=== PATIENT | male | born 1990 | race Caucasian/White ===

== ENCOUNTER 2016-09-16 03:43 | Inpatient (IN) | payer OTHER ==
--- NOTE | ~2016-09-16 | FU ---
[facility] Nutrition Therapy DATE: 09/23/16 Patient: MELANIA MACDONALD Physician: DELFINO Address: [address] [place] [address] ROAD Room/Bed: [address], Zip: [place] [address] Admit Date: 09/16/16 Date of : 91 Height: 5 9 Weight: 138 63 NUTRITION MONITORING/FOLLOW-UP: Reason: PT SEEN FOR FOLLOW-UP/ENTERAL NUTRITION SUPPORT DX: UNRESPONSIVE, RESPIRATORY ARREST Anthropometrics: 5'9", WT: 138# (63 KG), BMI: 20.4 -WEIGHTS HAVE BEEN STABLE SINCE ADMIT Labs: CREAT: 0.5, ALB: 2.6, PHOS: 2.3, NA+132 Meds: VERSED, FENTANYL, SOLU-MEDROL, NACL, NOVOLOG, PROTONIX, REGLAN, I&O's: 2690/3510 Skin: NO KNOWN SKIN ISSUES EDEMA: BILATERAL ANKLES 1+ EDEMA; BILATERAL FEET 1+ EDEMA Estimated Nutrition Needs: 5869-5763 KCAL 56-68 G PRO Assessment: CHART REVIEWED AND EVENTS NOTED. PT SEEN FOR ENTERAL NUTRITION SUPPORT. PT CONTINUES TO BE INTUBATED AND SEDATED (NO PROPOFOL). ENTERAL NUTRITION OF JEVITY 1.5 CURRENTLY OFF 2' S/P TRACH AND PEG PLACEMENT. PLANS IN PLACE TO RE-START EN TO GOAL RATE THIS AM. PER RN AND CHART, PT TOLERATING EN AND NOTING NO ISSUES. RD TO CONTINUE TO FOLLOW. Dx: INADEQUATE ORAL INTAKE R/T DX, CURRENT CONDITION AEB EN IN PLACE.-IN PROGRESS Intervention: 1. ENTERAL NUTRITION OFF AT THIS TIME Monitoring, Evaluation and Goals: GOALS NOT MET 1. ENTERAL NUTRITION; PROVIDE ~80-100% ESTIMATED NUTRIENT NEEDS AT GOAL X 24 HOURS 2. ORAL INTAKE; ADVANCE DIET PER SPECIAL AGENT W/NO C/O N/V/D (PO>50%) 3. LABS; WNL: ELECTROLYTES MONITOR: -TF RATE/RESIDUALS (RE-START) -WEIGHTS -LABS -EXTUBATION? Recommendations: [facility] Nutrition Therapy DATE: 09/23/16 Patient: MELANIA MACDONALD Physician: DELFINO Address: [address] [place] [address] ROAD Room/Bed: [address], Zip: [place] [address] Admit Date: 09/16/16 Date of : 91 Height: 5 9 Weight: 138 63 1. ONCE MEDICALLY FEASIBLE, RE-START ENTERAL NUTRITION SUPPORT OF JEVITY 1.5 @ 20 ML/HR, ADVANCE 10 ML q 4 HOURS TO GOAL RATE OF 50 ML/HR -PROVIDES 1800 KCAL, 77 G PRO, 912 ML FREE H20 CONTINUE FREE H20 FLUSHES PER MD 2. ONCE PT EXTUBATED, ADVANCE DIET PER SPECIAL AGENT + REGULAR DIET RD WILL F/U PER PROTOCOL PT IS SEVERELY COMPROMISED Respectfully, SHAY KERNS MS, RD, LD Food and Nutritional [facility] cc: client file
--- NOTE | ~2016-09-16 | FU ---
[facility] Nutrition Therapy DATE: 09/19/16 Patient: MELANIA MACDONALD Physician: DELFINO Address: [address] [facility] Room/Bed: [address], Zip: [place] [address] Admit Date: 09/16/16 Date of : 91 Height: 5 9 Weight: 149 68 NUTRITION MONITORING/FOLLOW-UP: Reason: PT SEEN FOR FOLLOW-UP/ENTERAL NUTRITION SUPPORT DX: UNRESPONSIVE, RESPIRATORY ARREST Anthropometrics: 5'9", WT: 149# (68 KG), BMI: 22.0 -ADMIT WEIGHT: 136# Labs: GLU: 119, CA+:8.0, ALB: 3.4 (09/17/16), PHOS: 2.3, NA+:148 Meds: FENTANYL, NACL, SOLU-MEDROL, PROTONIX, NOVOLOG, PROPOFOL D/C'D I&O's: 6911/2700 Skin: TATTOOS NOTED; NO OTHER SKIN ISSUES NOTED Estimated Nutrition Needs: 3339-7576 KCAL 56-68 G PRO Assessment: CHART REVIEWED AND EVENTS NOTED. PT SEEN FOR ENTERAL NUTRITION SUPPORT FOLLOW-UP. PT CONTINUES TO BE INTUBATED AND SEDATED AT TIME OF VISIT RECEIVING NUTRITION SUPPORT OF JEVITY 1.5 @ 50 ML/HR. PER RN AND CHART, PT TOLERATING EN, NOTING NO ISSUES. PER PUMP HISTORY, PT RECEIVING ~94% ESTIMATED NEEDS PAST 24 HOURS. PER MD NOTES, H20 FLUSHES OF 300 ML q 6 HOURS HAS BEEN ADDED. FAMILY IN ROOM REPORTED NO DIET QUESTIONS AT THIS TIME. RD TO CONTINUE TO FOLLOW. -PROVIDES 1800 KCAL, 77 G PRO, 2112 ML FREE H20 Dx: INADEQUATE PROTEIN-ENERGY INTAKE R/T NUTRITION NOT YET INITIATED AEB NPO STATUS, INTUBATED.-NUTRITION NOT YET INITIATED-RESOLVED; NPO-RESOLVED. INTUBATED-ACTIVE. INADEQUATE ORAL INTAKE R/T DX, CURRENT CONDITION AEB ENTERAL NUTRITION IN PLACE. Intervention: 1. ENTERAL NUTRITION SUPPORT Monitoring, Evaluation and Goals: GOALS MET 1. ENTERAL NUTRITION; PROVIDE ~80-100% ESTIMATED NUTRIENT NEEDS 2. ORAL INTAKE; ADVANCE DIET TOLERATED/CONSUME DIET W/NO C/O N/V/D (PO>50%) 3. LABS; WNL 4. GI; PROMOTE REGULAR GI FUNCTION MONITOR: -TF RATE/RESIDUALS [facility] Nutrition Therapy DATE: 09/19/16 Patient: MELANIA RENAE Physician: DELFINO Address: [address] [place] [address] ROAD Room/Bed: [address], Zip: [place] [address] Admit Date: 09/16/16 Date of : 91 Height: 5 9 Weight: 149 68 -WEIGHTS -EXTUBATION RATE? -LABS Recommendations: 1. REPLACE PHOS LEVELS (LOW) 2. CONTINUE CURRENT ENTERAL NUTRITION SUPPORT OF JEVITY 1.5 @ 50 ML/HR -PROVIDES 1800 KCAL, 77 G PRO, 912 ML FREE H20 CONTINUE FREE H20 FLUSHES PER MD 3. ONCE MEDICALLY FEASIBLE, ADVANCE DIET PER PRINT SHOP STENOGRAPHER + REGULAR RD WILL F/U PER PROTOCOL PT IS SEVERELY COMPROMISED Respectfully, SHAY KERNS MS, RD, LD Food and Nutritional Services [facility] cc: client file
--- NOTE | ~2016-09-16 | HP ---
Unit #: [id number] #: [id number] Patient: MELANIA MACDONALD [id number] [address] [address] [id number] I MR#: [id number] NAME: MELANIA MACDONALD ROOM: [facility] Age: 26 Sex: M Admission Date: 09/16/2016 : 1990 Attending Physician: Erna Luke M.D. Primary Care Physician: No Primary Care Physician HISTORY AND PHYSICAL CHIEF COMPLAINT Shortness of breath and acute respiratory failure requiring intubation. HISTORY OF PRESENTING ILLNESS The patient is a 26-year-old man with a past medical history of asthma, presented to the emergency room at [facility] secondary to acute exacerbation of asthma. In the emergency room, he had a cardiopulmonary arrest and he was resuscitated. He was intubated and transferred here for further care. The patient is currently sedated and intubated, unable to provide any history. All the history is obtained by reviewing the records and talking to patient's nurse and grandmother. According to his grandmother, he was feeling short of breath in the last few days. he initially took some of the grandmother's nebulizers and inhalers. Apparently he ran out of his insurance and does not have any of his medications. Apparently, he does smoke and she is not sure whether it is tobacco, weed or both. In the outlying emergency room, he was intubated and transferred here for further care. PAST MEDICAL HISTORY History of asthma. HOME MEDICATIONS Unknown. PAST SURGICAL HISTORY History of sarah placement in the right arm. FAMILY HISTORY Coronary artery disease. ALLERGIES No known drug allergies. SOCIAL HISTORY Currently he is unemployed. 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 Smokes a pack per day. Per grandmother, she is not sure about any illicit drugs. REVIEW OF SYSTEMS Unobtainable. PHYSICAL EXAMINATION Unit #: [id number] #: [id number] Patient: MELANIA MACDONALD VITAL SIGNS: Temperature 98.1, pulse rate 118, respiratory rate 16, blood pressure 144/81. GENERAL: The patient is orally intubated. HEENT: Pupils pinpoint, reactive to light and accommodation. Oral mucosa is moist. NECK: Supple. No JVD. HEART: S1, S2. Tachycardic. CHEST: Bilateral equal air entry. Clear to auscultation. ABDOMEN: Soft, nontender. EXTREMITIES: No edema. Normal peripheral pulses. SKIN: Multiple tattoos in place. DIAGNOSTIC STUDIES LABORATORY: Glucose 94, BUN 20, creatinine 1.4, sodium 136, potassium 3.3, chloride 100, bicarb 19, calcium 8.5, INR 1.1, WBC 23.3, hemoglobin 15.9, platelets 525, neutrophils 41.8, lymphocytes 42.7, eosinophils 8.2. Tox screen positive for marijuana. UA shows 25-50 RBCs, 5-10 WBCs, nitrite negative, leukocyte esterase negative. ASSESSMENT AND PLAN 1. Acute respiratory failure with status asthmaticus attack: He is currently intubated. Will go from pulmonary input. He is on oxygen, steroids, p.r.n. breathing treatments. I spoke with grandmother at length. Will try to arrange for primary care physician and pulmonary to follow up as an outpatient once he is more stabilized. 2. ICU core measures including DVT precautions and (1) prophylaxis. 3. Will also check an influenzae swab, respiratory pathogen panel: He is empirically started on Tamiflu. Will continue with that. 4. Will also check a hepatitis and HIV serology. DVT precautions. His overall condition is critical in this situation. I explained in detail to the patient's grandmother. Dictated by Sadi Perrin/eron TD: 09/16/2016 12:28 JOB #: [id number] Unit #: [id number] #: [id number] Patient: MELANIA MACDONALD HISTORY AND PHYSICAL Page 1 of 1 X X HISTORY AND PHYSICAL
--- NOTE | ~2016-09-16 | EE ---
Unit #: [id number] #: [id number] Patient: MELANIA MACDONALD [id number] [address] [address] [id number] I MR#: [id number] NAME: MELANIA MACDONALD : 1990 SEX: M STUDY DATE/TIME: 09/23/2016 [place]: [facility] [place]: [facility] [place] STUDY DESCRIPTION: EEG Attending Physician: Brayden Ramirez M.D. Referring Physician: Rupert Bell M.D. Primary Care Physician: No Primary Care Physician NEURODIAGNOSTICS REPORT PROCEDURE PERFORMED EEG. REASON FOR STUDY This is the third EEG to look for any seizure or seizure-like activity. EEG DESCRIPTION This is an inpatient, portable, digitally recorded, multi-montage, adult EEG with leads placed according to the International 10-20 system. Hyperventilation and photic stimulation were not done. PROCEDURE REPORT This EEG shows diffuse slowing, and on top of that, there are diffuse spindles, at times even anteriorly displaced spindles. There was mostly delta activity, low amplitude, but some reactivity was seen, and some faster frequencies were seen, but the important factor is nothing suggesting seizures, interictal discharges, status or paroxysmal activity. Hyperventilation and photic stimulation were not done. IMPRESSION Abnormal EEG showing slowing and diffuse spindles and possibly some reactivity but nothing suggesting seizure or status, so clinical correlation is recommended. Dictated by... Sadi Prasad/vangie TD: 09/24/2016 15:47 JOB #: [id number] Unit #: [id number] #: [id number] Patient: MELANIA MACDONALD NEURODIAGNOSTICS REPORT Page 1 of 1 X Rupert Bell MD NEURODIAGNOSTICS REPORT
--- NOTE | ~2016-09-16 | CR72 ---
[facility] A Service of [facility] RADIOLOGY TEXT RESULTS PATIENT: MELANIA MACDONALD LOCATION: [address] : [birth year] UNIT #: [id number] AGE: [address]: Hamilton Mayer MD SEX: M ORDER DR: [id number] [facility] [address] [place], [place] [address] [id number] I MR#: [id number] Acc #: [id number] NAME: MELANIA MACDONALD : 1990 SEX: M STUDY DATE/TIME: 10/01/2016 2:25 UNIT: [facility] ROOM: [facility] STUDY DESCRIPTION: CR Chest Single View Portable Attending Physician: Hamilton Mayer M.D. Ordering Physician: Jeffry Starr M.D. Primary Care Physician: Primary Care Physician No MEDICAL IMAGING REPORT This report is preliminary unless electronic signature is present EXAM AP portable chest 10/01/2016 HISTORY Respiratory failure. Follow up cardiopulmonary status. TECHNIQUE AP portable chest x-ray. FINDINGS The exam shows no change since yesterday. Tracheostomy tube and right arm PICC remain in good position. The lungs are expanded and clear. Scoliosis. IMPRESSION Stable chest x-ray, unchanged since yesterday. Dictated by... Cole Crespo M.D. THIS IS AN ELECTRONICALLY VERIFIED REPORT Cole Crespo M.D. at 10/01/2016 5:59 AM EMELIAW/maribel TD: 10/01/2016 03:12 JOB #: [id number] MEDICAL IMAGING REPORT Page 1 of 1 COPY
--- NOTE | ~2016-09-16 | DS ---
Unit #: [id number] #: [id number] Patient: MELANIA MACDONALD [id number] [facility] [address] [facility]. [place], [place] [address] [id number] I MR#: [id number] NAME: MELANIA MACDONALD ROOM: [facility] Age: 26 Sex: M Admission Date: 09/16/2016 : 1990 Discharge Date: Attending Physician: Erna Luke M.D. Primary Care Physician: No Primary Care Physician DISCHARGE SUMMARY ADMITTING DIAGNOSIS Acute hypoxic respiratory failure requiring intubation. CONSULTANTS 1. Dr. Christiane Siddiqui. 2. Dr. Anna Wahl. 3. Dr. Bell. FURTHER DIAGNOSES 1. Myoclonic jerks. 2. Possible anoxic encephalopathy. HISTORY OF PRESENTING ILLNESS The patient is a 26-year-old man with a past medical history of asthma who was brought to [facility] emergency room mainly because of acute exacerbation of asthma. Apparently, patient was brought by a friend in a car and in the emergency room while waiting there, he parked farther from the ER. He requested for a wheelchair and while he was being wheeled he was noticed to have cyanotic, blue, and was pulseless. Cardiopulmonary resuscitation was initiated and he regained pulse. He was intubated and apparently ended up self-extubating a couple of times. Further, he was intubated, sedated and brought to the [facility]. In the hospital, he was seen by Dr. Siddiqui for pulmonary, Dr. Anna Wahl for cardiology, and Dr. Bell for neurology. The patient is sedated. Unfortunately, does not have any further neurological responses. He was having myoclonic jerks and he was getting sedated. So far, no neurological improvement. He had one MRI done and the MRI, initial one, the official reading is mild chronic inflammatory cyanosis and otherwise negative MRI. This was done on the and neurologist is planning to repeat the MRI today. I did explain to the family about the overall poor prognosis and they understand. Cardiology signed off at this point mentioning that there is no further cardiac workup planned. Please note - cardiac enzymes were negative so far. His overall prognosis and final discharge plan will be dictated by me or my colleague at the time of actual discharge. Dictated by... Hamilton Mayer M.D. Unit #: [id number] #: [id number] Patient: MELANIA MACDONALD/eron TD: 09/19/2016 10:55 JOB #: [id number] DISCHARGE SUMMARY Page 1 of 1 X X DISCHARGE SUMMARY
--- NOTE | ~2016-09-16 | CO ---
Unit #: [id number] #: [id number] Patient: MELANIA MACDONALD [id number] [address] [place], [place] [address] [id number] I MR#: [id number] NAME: MELANIA MACDONALD ROOM: [address] Age: 26 Sex: M Admission Date: 09/16/2016 : 1990 Attending Physician: Erna Luke M.D. Primary Care Physician: No Primary Care Physician CONSULTATION REPORT REASON FOR CONSULTATION ICU management. This is a 26-year-old male with a past medical history significant for asthma who presented to the endoscopic retrograde cholangiopancreatography at [facility] as a transfer from [facility], status post status asthmaticus and cardiac arrest. Per his mom, the patient has been using his inhalers very frequently for the last week or so but she denied noticing any fever, productive cough, nausea, vomiting or diarrhea. She says she left this morning to work and he was at his baseline except more short of breath and later she was called that patient went to the ER with his status asthmaticus. Per the note from the other ER, soon after patient arrived he lost his pulse and sent in PEA. He was resuscitated immediately for a couple of minutes and he regained his pulse back. There is a report that patient self-extubated twice. Currently, patient is ventilated and heavily sedated. However, he is withdrawing to painful stimuli. He has a weak cough and gag reflexes. His pupils are reactive. PAST MEDICAL HISTORY Asthma. PAST SURGICAL HISTORY Berny placement in his right arm. FAMILY HISTORY Coronary artery disease. ALLERGIES None. SOCIAL HISTORY The patient smokes at least a half pack per day for unknown period of time. No history of alcoholism or drug abuse. The patient is not employed. REVIEW OF SYSTEMS Unable to obtain from the patient due to his condition. PHYSICAL EXAMINATION Unit #: [id number] #: [id number] Patient: MELANIA MACDONALD GENERAL: The patient is on the vent and heavily sedated. VITAL SIGNS: Blood pressure 146/75, respiratory rate 20, O2 saturation 98% on the vent and heart rate is 124. HEENT: Atraumatic, normocephalic. PERRLA, EOMI. NECK: Supple. No JVD, no lymphadenopathy. CHEST: Diffuse wheezing and diminished breath sounds bilaterally. HEART: S1, S2. No murmurs, gallops or rubs. Patient in sinus tach. ABDOMEN: Soft, slightly distended. EXTREMITIES: No edema or cyanosis. SKIN: No rashes. HOSPITALITY RECRUITER: Patient is heavily sedated. He is withdrawing to painful stimuli but he is not following commands. However, again, he is heavily sedated. DIAGNOSTIC STUDIES LABORATORY: Blood gas is showing 7.09/51/254. Creatinine 1.4, CO2 19. Lactic acid 7.2. White blood count 23.3, hemoglobin 15.9, platelets 525. IMAGING: Chest x-ray didn't show any acute infiltrate. ASSESSMENT 1. Acute hypoxic/hypercarbic respiratory failure. 2. Status post pulseless electrical activity cardiac arrest. 3. Lactic acidosis. 4. Status asthmaticus. 5. Acute kidney injury. 6. Leukocytosis. 7. Hypokalemia. PLAN 1. Patient is (1) critical. Will continue vent support pending further workup. 2. IV fluid per sepsis guidelines even though there is no clear source of sepsis except likely bronchitis. 3. Rocephin and azithromycin given the severity of his illness. 4. IV steroids, bronchodilators and mucolytics. 5. NG-tube to suction due to distended stomach. 6. DVT and GI prophylaxis. Critical care time spent on this patient was 45 minutes. Dictated by... Serjio Siddiqui M.D. EA/eron TD: 09/16/2016 07:30 JOB #: [id number] Unit #: [id number] #: [id number] Patient: MELANIA MACDONALD CONSULTATION REPORT Page 1 of 1 X SERJIO KOROMA MD X CONSULTATION REPORT
--- NOTE | ~2016-09-16 | A ---
[facility] Nutrition Therapy DATE: 09/16/16 Patient: MELANIA MACDONALD Physician: DELFINO Address: [address] [place] [address] Room/Bed: [address], Zip: [place] [address] Admit Date: 09/16/16 Date of : [birth year] Height: 5 9 Weight: 136 62 NUTRITIONAL ASSESSMENT: REASON: New ICU admit, intubated, no diet order in place Admitting Dx: 26 y/o male admitted with respiratory arrest PMH: Asthma, current smoker, daily marijuana use, no illicit drug/ETOH use Anthropometrics: Ht: 69", Wt: 62 kg (136 lbs), BMI: 20 (normal) Labs: K+ 3.3, Glucose 294 Meds: Novolog, PPI, Solu-medrol, Tamiflu, NACL, Fentanyl, Propfol @ 22 ml/hr I/O & Bowel function: LBM unknown Skin Integrity: Tattoos noted, no other issues, no edema Estimated Nutrition Needs: 5394-0562 kcals per day (25-30 kcals/kg) 56-68 kcals per day (0.9-1.1 g/kg) Fluids consistent with kcal needs or per MD Assessment: Chart reviewed, events noted. See admitting dx and PMH as stated above. Patient is unemployed, lives with his parents who report he is allergic to all nuts. He is currently intubated and sedated with Propofol providing 581 lipid kcals. Has hx of daily marijuana use but family denied illicit drug/ETOH use. Patient in isolation precautions due to possibly having the flu, however swab has not yet been taken. Past weights range from 130-135 lbs, reflecting no recent weight loss. 0 points malnutrition risk score. See EN recs below, will follow hospital course. Dx: Inadequate protein energy intake r/t nutrition not yet initiated AEB NPO, intubated. Intervention: EN recs as stated below, change sedation? Monitoring, Evaluation and Goals: 1. EN consistent with estimated needs. 2. Prevent unintentional weight loss. 3. Improvement in labs (glucose, lytes). Monitor: Per protocol, criteria to determine if above goals met [facility] Nutrition Therapy DATE: 09/16/16 Patient: MELANIA MACDONALD Physician: DELFINO Address: [address] [facility] Room/Bed: [address], Zip: [place] [address] Admit Date: 09/16/16 Date of : [birth year] Height: 5 9 Weight: 136 62 Recommendations: 1. Replace lytes prn (K+ low). 2. Consider changing sedation medication due to patient's history of nut allergy and potential cross interaction. 3. If patient is to remain intubated > [address] DHT and starting enteral nutrition with Jevity 1.5. See goal recommendations below based on sedation: Goal rate WITH Propofol (currently providing 581 lipid kcals): 35 ml/hr + 30 ml daily Prostat per tube This nutrition regimen + kcals from Propofol would provide 1941 kcals, 69 g protein and 638 ml water Once at goal rate add free water flushes per MD; suggest 200 ml q 4 hours Goal rate WITHOUT Propofol: 50 ml/hr This nutrition regimen would provide 1800 kcals, 77 g protein and 912 ml water Once at goal rate add free water flushes per MD; suggest 225 ml QID 4. If patient is extubated advance to regular diet as tolerated and inquire with patient about his food allergies. Suggest SYBASE DEVELOPER eval if intubated > 48 hours to determine safety of PO intake. 5. Consider adding SSI regimen noting glucose of 294 mg/dL and patient is on Solu-medrol. RD will follow hospital course Moderate-severe nutrition risk Respectfully, Nallely Castro, BLAKE, LD Food and Nutritional Services [facility] cc: client file
--- NOTE | ~2016-09-16 | CT4 ---
[facility] A Service of [facility] RADIOLOGY TEXT RESULTS PATIENT: MELANIA MACDONALD LOCATION: [address] : [birth year] UNIT #: [id number] AGE: [address]: Brayden Ramirez MD SEX: M ORDER DR: [id number] [place] [id number] [facility]. [place], [place] [address] [id number] I MR#: [id number] Acc #: [id number] NAME: MELANIA MACDONALD : 1990 SEX: M STUDY DATE/TIME: 09/26/2016 0:13 [facility] STUDY DESCRIPTION: CT Abd and Pelv Wo Cont Attending Physician: Brayden Ramirez M.D. Ordering Physician: Jeffry Starr M.D. Primary Care Physician: Primary Care Physician No MEDICAL IMAGING REPORT This report is preliminary unless electronic signature is present EXAM CT abdomen and pelvis without contrast INDICATIONS Status post arrest, fever. TECHNIQUE Axial 5 mm images were obtained through the abdomen and pelvis with oral contrast only. This CT exam was performed with one or more of the following radiation dose reduction techniques: Automatic exposure control, adjustment of mA and/or kV according to patient size, and iterative reconstruction. FINDINGS There is free air in the upper abdomen. The patient has a G tube in place. The liver, gallbladder, spleen, pancreas, adrenal glands and kidneys are normal. The bowel appears normal. The bladder is collapsed around a Parada catheter. The prostate gland is normal. The bones are unremarkable. IMPRESSION 1. There is free intraperitoneal air present. I have spoken with the patient's nurse in the ICU and the patient had a G tube placed 2 days ago, which is likely the cause of the free air. 2. No cause of the patient's fever is identified. Dictated by... Saeed Simmons M.D. THIS IS AN ELECTRONICALLY VERIFIED REPORT Saeed Simmons M.D. at 09/26/2016 1:14 PM FEL/psc [facility] A Service of [facility] RADIOLOGY TEXT RESULTS PATIENT: MELANIA MACDONALD LOCATION: [facility] CICCU2-10 : [birth year] UNIT #: [id number] AGE: [address]: Brayden Ramirez MD SEX: M ORDER DR: TD: 09/26/2016 02:10 JOB #: [id number] MEDICAL IMAGING REPORT Page 1 of 1 COPY
--- NOTE | ~2016-09-16 | CR72 ---
[facility] A Service of [facility] & [facility] RADIOLOGY TEXT RESULTS PATIENT: MELANIA MACDONALD LOCATION: [place] [address]10 : 91 UNIT #: [id number] AGE: [address]: Brayden Ramirez MD SEX: M ORDER DR: [id number] [facility] [address] [facility]. [place], [place] [address] [id number] I MR#: [id number] Acc #: [id number] NAME: MELANIA MACDONALD : 1990 SEX: M STUDY DATE/TIME: 09/26/2016 4:04 UNIT: [facility] ROOM: [facility] STUDY DESCRIPTION: CR Chest Single View Portable Attending Physician: Brayden Ramirez M.D. Ordering Physician: Brayden Ramirez M.D. Primary Care Physician: Primary Care Physician No MEDICAL IMAGING REPORT This report is preliminary unless electronic signature is present EXAM Single view chest INDICATION Respiratory failure. Cardiac arrest. FINDINGS Single portable AP view of the chest compared to 09/25/2016. Tracheostomy tube and right PICC remain in place. Heart and mediastinal contours are stable. No new pulmonary opacities. IMPRESSION No interval change. Dictated by... Eleno Alfonso M.D. THIS IS AN ELECTRONICALLY VERIFIED REPORT Eleno Alfonso M.D. at 09/26/2016 8:08 AM MISHA/chandan TD: 09/26/2016 07:20 JOB #: [id number] MEDICAL IMAGING REPORT Page 1 of 1 COPY
--- NOTE | ~2016-09-16 | CO ---
Unit #: [id number] #: [id number] Patient: MELANIA PURCELL [id number] [address] [address] [id number] I MR#: [id number] NAME: MELANIA PURCELL ROOM: [facility] Age: 26 Sex: M Admission Date: 09/16/2016 : 1990 Attending Physician: Erna Luke M.D. Consultation Date: 09/22/2016 CONSULTATION REPORT REASON FOR CONSULTATION Evaluate for possible tracheostomy tube placement and percutaneous endoscopic gastrostomy tube. HISTORY OF PRESENT ILLNESS Thank you very much for asking us to see Mr. Purcell. He is a 26-year-old white male, who was admitted on 09/16/2016 after suffering a cardiopulmonary arrest due to acute exacerbation of asthma. He resuscitated and is currently in the intensive care unit. He is on a ventilator and is having difficulty weaning. We were asked to see him this time to evaluate for tracheostomy tube placement and for possible PEG tube placement. PAST MEDICAL HISTORY Asthma. MEDICATIONS See med rec sheet. PAST SURGICAL HISTORY History of sarah placement in right arm. FAMILY HISTORY Coronary artery disease. ALLERGIES No known medical allergies. SOCIAL HISTORY Positive tobacco use. REVIEW OF SYSTEMS Unobtainable. IMMUNIZATION STATUS Unknown. PHYSICAL EXAMINATION GENERAL: Well-developed white male, in no apparent distress. VITAL SIGNS: Afebrile. Vital signs stable. He is currently intubated. NECK: Supple. No thyromegaly or adenopathy. BACK: No obvious CVA or spinous tenderness. ABDOMEN: Flat, soft, nontender. No obvious scars. Unit #: [id number] #: [id number] Patient: MELANIA PURCELL EXTREMITIES: No calf tenderness. No erythema. DIAGNOSTIC STUDIES LABORATORY RESULTS: Reveal the patient to have a CMP that for the most part within normal limits. PT and PTT that are normal. White count that is 14.7, hemoglobin 12.2 and hematocrit 37.1. IMPRESSION A 26-year-old white male, who requires tracheostomy tube placement and percutaneous endoscopic gastrostomy tube placement for nutritional support. We have explained to the patient's parents in detail the procedures of tracheostomy tube placement and esophagogastroduodenoscopy and percutaneous endoscopic gastrostomy tube placement and in detail including the risks and benefits including bleeding, infection, , transfer, additional surgery, intraabdominal injury, exploratory laparotomy, as well as other risks. They understand completely and requests to proceed. Dictated by... Sadi Silva/salas TD: 09/23/2016 01:45 JOB #: [id number] CC: [facility] CONSULTATION REPORT Page 1 of 1 X Chris Nielsen MD X CONSULTATION REPORT
--- NOTE | ~2016-09-16 | EKG ---
PATIENT: MELANIA MACDONALD UNIT #: [id number] Ventricular Rate: 117 BPM Atrial Rate: 117 BPM P-R Interval: 136 ms QRS Duration: 92 ms Q-T Interval: 358 ms QTC Calculation(Bezet): 499 ms P Mont[place]: 69 degrees Calculated R [place]: 88 degrees Calculated T [place]: 47 degrees Diagnosis Line: Sinus tachycardia Diagnosis Line: Septal infarct , age undetermined Diagnosis Line: Abnormal ECG Diagnosis Line: No previous ECGs available Diagnosis Line: Confirmed by JD ARIAS MD ([id number]) on 09/17/2016 Diagnosis Line: 8:04:09 PM INTERPRETING MD: JUANA ALMENDAREZ
--- NOTE | ~2016-09-16 | CR72 ---
[facility] A Service of [facility] RADIOLOGY TEXT RESULTS PATIENT: MELANIA MACDONALD LOCATION: [address] : [birth year] UNIT #: [id number] AGE: [address]: Erna Luke MD SEX: M ORDER DR: [id number] [place] [id number] [facility]. [place], [place] [address] [id number] I MR#: [id number] Acc #: [id number] NAME: MELANIA MACDONALD : 1990 SEX: M STUDY DATE/TIME: 09/22/2016 13:46 UNIT: [facility] ROOM: [facility] STUDY DESCRIPTION: CR Chest Single View Portable Attending Physician: Erna Luke M.D. Ordering Physician: Erna Luke M.D. Primary Care Physician: Primary Care Physician No MEDICAL IMAGING REPORT This report is preliminary unless electronic signature is present EXAM Portable chest INDICATION Tracheostomy tube placement. COMPARISON Earlier today. FINDINGS Interval placement of tracheostomy tube. Tube appears to be in satisfactory position. There is increased atelectasis or consolidation within the base of the left lung. On both views, there appears to be a small amount of free air under the right hemidiaphragm. This was not seen on the study earlier today. I am unsure if the study earlier today was supine versus upright. Please correlate clinically with any recent abdominal surgical history. Perforated viscus cannot be excluded. IMPRESSION 1. Incidentally noted is what appears to be a small amount of free air under the right hemidiaphragm. Please correlate with any recent abdominal surgery to explain the free air otherwise perforated viscus cannot be excluded. 2. Tracheostomy tube is in satisfactory position. Dictated by... Gasper Dunlap M.D. THIS IS AN ELECTRONICALLY VERIFIED REPORT Gasper Dunlap M.D. at 09/22/2016 4:57 PM Oleg TD: 09/22/2016 14:52 [facility] A Service of [facility] RADIOLOGY TEXT RESULTS PATIENT: MELANIA MACDONALD [address]: [address] : [birth year] UNIT #: [id number] AGE: [address]: Erna Luke MD SEX: M ORDER DR: JOB #: [id number] MEDICAL IMAGING REPORT Page 1 of 1 COPY
--- NOTE | ~2016-09-16 | CR72 ---
[facility] A Service of [facility] & [facility] RADIOLOGY TEXT RESULTS PATIENT: MELANIA MACDONALD LOCATION: [address] : [birth year] UNIT #: [id number] AGE: [address]: Erna Luke MD SEX: M ORDER DR: [id number] [facility] [address] [place], [place] [address] [id number] I MR#: [id number] Acc #: [id number] NAME: MELANIA MACDONALD : 1990 SEX: M STUDY DATE/TIME: 09/23/2016 6:09 UNIT: [facility] ROOM: [facility] STUDY DESCRIPTION: CR Chest Single View Portable Attending Physician: Erna Luke M.D. Ordering Physician: Jeffry Starr M.D. Primary Care Physician: Primary Care Physician No MEDICAL IMAGING REPORT This report is preliminary unless electronic signature is present EXAM Portable chest 09/23/2016 COMPARISON 09/22/2016 HISTORY Respiratory failure. Status post arrest. FINDINGS Since the study of 09/22, the left retrocardiac area of infiltrate or atelectasis has resolved. There is no new infiltrate. There is no pneumothorax. Right IJ central line and tracheostomy appliance remain. Dictated by... Charlie Allison M.D. THIS IS AN ELECTRONICALLY VERIFIED REPORT Charlie Allison M.D. at 09/23/2016 3:52 PM TEV/ebenezer TD: 09/23/2016 10:59 JOB #: [id number] MEDICAL IMAGING REPORT Page 1 of 1 COPY
--- NOTE | ~2016-09-16 | FU ---
[facility] Nutrition Therapy DATE: 09/26/16 Patient: MELANIA RENAE Physician: DELFINO Address: [address] [place] [address] ROAD Room/Bed: [address], Zip: [place] [address] Admit Date: 09/16/16 Date of : [birth year] Height: 5 9 Weight: 141 64 NUTRITION MONITORING/FOLLOW-UP: Reason: PT SEEN FOR FOLLOW-UP/ENTERAL NUTRITION SUPPORT DX: UNRESPONSIVE, RESPIRATORY ARREST Anthropometrics: 5'9", WT: 141# (64 KG), BMI: 20.8 -WEIGHTS HAVE BEEN STABLE SINCE ADMIT Labs: ALB: 2.8, ALT: 73, AMYLASE: 88, LIPASE: 78 Meds: NOVOLOG, PROTONIX, VERSED, PROPOFOL, KCL I&O's: 3496/3070 Skin: NO KNOWN SKIN ISSUES EDEMA: BILATERAL FEET AND ANKLES TRACE EDEMA Estimated Nutrition Needs: [phone] KCAL 56-68 G PRO Assessment: CHART REVIEWED AND EVENTS NOTED. PT SEEN FOR ENTERAL NUTRITION SUPPORT FOLLOW-UP. PT CONTINUES TO BE INTUBATED AND SEDATED (PT RECEIVING PROPOFOL OF 11.3 ML/HR PROVIDING ~300 KCAL FROM LIPIDS) RECEIVING ALTERNATIVE NUTRITION SUPPORT OF JEVITY 1.5 @ 35 ML/HR + SUGAR-FREE PROSTAT ONCE DAILY. PER RN AND CHART, PT TOLERATING EN, NOTING NO ISSUES. NO FAMILY IN ROOM AT TIME OF VISIT. RD TO CONTINUE TO FOLLOW. Dx: INADEQUATE ORAL INTAKE R/T DX, CURRENT CONDITION AEB EN IN PLACE.-ACTIVE. Intervention: 1. ENTERAL NUTRITION Monitoring, Evaluation and Goals: GOALS MET 1. ENTERAL NUTRITION; PROVIDE ~80-100% ESTIMATED NUTRIENT NEEDS 2. ORAL INTAKE; ADVANCE DIET AND CONSUME >50% OF MEALS W/NO C/O N/V/D 3. WEIGHTS; PROMOTE WEIGHT MAINTENANCE 4. LABS; WNL MONITOR: -TF RATE/RESIDUALS -SEDATION RATE -WEIGHTS -EXTUBATION? [facility] Nutrition Therapy DATE: 09/26/16 Patient: MELANIA MACDONALD Physician: DELFINO Address: [address] [place] [address] ROAD Room/Bed: [address], Zip: [place] [address] Admit Date: 09/16/16 Date of : [birth year] Height: 5 9 Weight: 141 64 Recommendations: 1. CONTINUE CURRENT ENTERAL NUTRITION SUPPORT OF JEVITY 1.5 @ 35 ML/HR + SUGAR-FREE PROSTAT + SEDATION -PROVIDES 1660 KCAL, 68 G PRO, 638 ML FREE H20 CONTINUE FREE H20 FLUSHES PER MD 2. ONCE PT EXTUBATED, ADVANCE DIET PER PATHOLOGY SUPERVISOR + REGULAR RD WILL F/U PER PROTOCOL PT IS MOD/SEVERELY COMPROMISED Respectfully, SHAY KERNS MS, RD, LD [facility] cc: client file
--- NOTE | ~2016-09-16 | CR72 ---
[facility] A Service of [facility] & [facility] RADIOLOGY TEXT RESULTS PATIENT: MELANIA MACDONALD LOCATION: [address] : [birth year] UNIT #: [id number] AGE: [address]: Erna Luke MD SEX: M ORDER DR: [id number] [facility] [address] [facility]. [place], [place] [address] [id number] I MR#: [id number] Acc #: [id number] NAME: MELANIA MACDONALD : 1990 SEX: M STUDY DATE/TIME: 09/17/2016 03:14 UNIT: [facility] ROOM: [facility] STUDY DESCRIPTION: CR Chest Single View Portable Attending Physician: Erna Luke M.D. Ordering Physician: Shannon Siddiqui M.D. Primary Care Physician: No Primary Care Physician MEDICAL IMAGING REPORT This report is preliminary unless electronic signature is present EXAM Portable chest, 09/17 at 03:14. INDICATIONS Respiratory failure. Ventilator patient. Status post cardiac arrest. FINDINGS AP portable chest compared 09/16/2016. ET tube and right IJ line are in good position. Feeding tube in the stomach. Heart size normal. Lungs are clear and there is no pneumothorax. Again seen is thoracic scoliosis. Dictated by... Madan Garcia Jr., M.D. THIS IS AN ELECTRONICALLY VERIFIED REPORT Madan Garcia Jr., M.D. at 09/17/2016 9:25 PM GREGORY/luis TD: 09/17/2016 09:46 JOB #: [id number] MEDICAL IMAGING REPORT Page 1 of 1 COPY
--- NOTE | ~2016-09-16 | CO ---
Unit #: [id number] #: [id number] Patient: MELANIA MACDONALD [id number] [place] [id number] [facility]. [place], [place] [address] [id number] I MR#: [id number] NAME: MELANIA MACDONALD ROOM: [facility] Age: 26 Sex: M Admission Date: 09/16/2016 : 1990 Attending Physician: Erna Luke M.D. Consultation Date: 09/16/2016 CONSULTATION REPORT HISTORY OF PRESENT ILLNESS This patient was brought in early in the morning by his friend who had a chance to talk to. Per Bettina, the nurse, the patient's friend approached her in the ambulance bay asking for a wheelchair. Apparently, this individual had parked far away from the hospital, was given a wheelchair and came back with the patient, who was slumped in the chair blue and pulseless. Bettina wheeled the patient back to the ER immediately. I assisted her in lifting the patient into the bed. The patient immediately had CPR initiated. Again, the patient was limp, cyanotic, pulseless, and not breathing. Accu-Chek was tested and found to be above 100. The patient was bagged and then intubated by me without incident. The patient was given, I believe, two rounds of CPR and pulse was regained within 5 to 10 minutes of resuscitation. During the patient's ER stay, he has begun to regain more consciousness. He was difficult to sedate. The patient too became dislodged twice and was re-intubated at no point with the patient hypoxic after resuscitation. The patient did unfortunately exhibit signs of anoxic brain injury with myoclonic jerks and extensive posturing again after his resuscitation. It was elected to have the patient rapidly transferred to a higher level of care given that this is an ambulatory ED facility. Dr. Gupta graciously accepted. It is my understanding that the patient now is currently intubated and sedated in the ICU. Dictated by... Darius Castro M.D. CHUCKY/salas TD: 09/17/2016 11:53 JOB #: [id number] CONSULTATION REPORT Page 1 of 1 X Darius Castro MD CONSULTATION REPORT
--- NOTE | ~2016-09-16 | CR72 ---
[facility] A Service of [facility] & [facility] / [facility] RADIOLOGY TEXT RESULTS PATIENT: MELANIA MACDONALD LOCATION: [address] : [birth year] UNIT #: [id number] AGE: [address]: Erna Luke MD SEX: M ORDER DR: [id number] [facility] [address] [facility]. [place], [place] [address] [id number] I MR#: [id number] Acc #: [id number] NAME: MELANIA MACDONALD : 1990 SEX: M STUDY DATE/TIME: 09/16/2016 12:00 UNIT: [facility] ROOM: [facility] STUDY DESCRIPTION: CR Chest Single View Portable Attending Physician: Erna Luke M.D. Ordering Physician: Physician Non-Staff Primary Care Physician: No Primary Care Physician MEDICAL IMAGING REPORT This report is preliminary unless electronic signature is present EXAM Portable chest. HISTORY Central line placement today.. COMMENTS Comparison made to a prior exam from earlier today. Since the prior exam, right internal jugular vein central venous line has been placed which terminates in superior vena cava. Endotracheal tube is present which terminates above the level of the lidia. No pneumothorax or pleural effusion is seen. Heart size is within normal limits for portable technique. There does there is some mild prominence of the interstitium unchanged when compared to the earlier study. Dictated by... Trudy Sargent M.D. THIS IS AN ELECTRONICALLY VERIFIED REPORT Trudy Sargent M.D. at 09/17/2016 12:24 PM AFF/ea TD: 09/16/2016 14:58 JOB #: [id number] MEDICAL IMAGING REPORT Page 1 of 1 COPY
--- NOTE | ~2016-09-16 | CR72 ---
[facility] A Service of [facility] & [facility] RADIOLOGY TEXT RESULTS PATIENT: MELANIA MACDONALD LOCATION: [place] [address] : [birth year] UNIT #: [id number] AGE: [address]: Brayden Ramirez MD SEX: M ORDER DR: [id number] [facility] [address] [facility] [place] [facility]. [place], [place] [address] [id number] I MR#: [id number] Acc #: [id number] NAME: MELANIA MACDONALD : 1990 SEX: M STUDY DATE/TIME: 09/25/2016 4:29 UNIT: [facility] ROOM: [facility] STUDY DESCRIPTION: CR Chest Single View Portable Attending Physician: Brayden Ramirez M.D. Ordering Physician: Jeffry Starr M.D. Primary Care Physician: Primary Care Physician No MEDICAL IMAGING REPORT This report is preliminary unless electronic signature is present EXAM Portable chest INDICATION Follow up tracheostomy tube. FINDINGS Today's portable view of the chest shows no change from yesterday's study. The tracheostomy tube and central venous catheter are in good position. Scoliosis is stable. The lungs are clear. The heart size is normal. Dictated by... Saeed Simmons M.D. THIS IS AN ELECTRONICALLY VERIFIED REPORT Saeed Simmons M.D. at 09/25/2016 2:15 PM SAFIA/chandan TD: 09/25/2016 06:12 JOB #: [id number] MEDICAL IMAGING REPORT Page 1 of 1 COPY
--- NOTE | ~2016-09-16 | DS ---
Unit #: [id number] #: [id number] Patient: MELANIA MACDONALD [id number] [facility] [address] [facility]. [place], [place] [address] [id number] I MR#: [id number] NAME: MELANIA MACDONALD ROOM: [facility] Age: 26 Sex: M Admission Date: 09/16/2016 : 1990 Discharge Date: 10/01/2016 Attending Physician: Hamilton Mayer M.D. Primary Care Physician: No Primary Care Physician DISCHARGE SUMMARY ADDENDUM Kindly note, I dictated an earlier discharge summary on the . This is an addendum to the discharge summary. CONSULTANTS 1. Dr. Starr. 2. Dr. Anna Wahl. 3. Dr. Nielsen. 4. Dr. Medina. 5. Dr. Bell. 6. Dr. Galeana, dermatology. ADMITTING DIAGNOSIS Found unresponsive. FURTHER DIAGNOSES 1. Acute respiratory failure, currently vent dependent status post trach and percutaneous endoscopic gastrostomy tube. 2. Anoxic encephalopathy. 3. Skin rash. HISTORY OF PRESENT ILLNESS Kindly refer to the H and P for details. Briefly, patient is a 26-year-old man who [facility] a friend in a wheelchair feeling short of breath. When he was wheeled to the emergency room, he was cyanotic, blue. He had cardiac arrest x2. He was successfully resuscitated and intubated and brought to the [facility] ICU. HOSPITAL COURSE He was initially orally intubated and as he was being prolonged vent dependent here, a trach and PEG done. He was seen by neurology. He had imaging including MRI and CT. The last MRI was on September 19. The MRI did not show any acute changes. He does have significant motion artifact. Clinically, Dr. Bell suspects anoxic encephalopathy and thinks he is in a persistent vegetative state at this point. We had multiple conversations with the family and explained them about the unfortunate clinical situation and explained in detail to the family including father and mother. In the hospital course, he also developed skin rash mainly in the upper extremities. He was started on steroids. He was seen by Dr. Galeana, dermatology. He thought the rash was secondary to (1) and he recommended topical Clobetasol propionate to be applied twice a day for a total of 14 days. With the concern rash could be secondary to yeast, he Unit #: [id number] #: [id number] Patient: MELANIA MACDONALD was started on Diflucan. There were no positive cultures or microbiologic cultures here. He will be on Diflucan for a total of 10 days, and he will be transferred to [place] for further long-term acute care. PHYSICAL EXAMINATION On the day of the discharge, his physical examination: VITAL SIGNS: Temperature 98.3, pulse rate 87, respirations 16, blood pressure 126/65. GENERAL: The patient is nonverbal. HEENT: Normocephalic and atraumatic. Pupils are equally reactive to light and accommodation. NECK: Status post trach. CHEST: Bilateral equal air entry. Clear to auscultation. ABDOMEN: PEG site clean. Bowel sounds present. EXTREMITIES: No edema. Normal peripheral pulses. SKIN: Multiple small millimeter raised skin lesions on the upper extremities. The skin rash is actually improving from the initial presentation a week ago. DISCHARGE MEDICATIONS 1. Tylenol 650 q.6 p.r.n. 2. Combivent 3 mL nebulizations q.2-4 p.r.n. for shortness of breath. 3. Clobetasol propionate 0.5% cream to be applied topically for two weeks until October 14, 2016. 4. Lovenox 40 mg subcutaneous daily. 5. Benadryl 25 mg IV q.6 p.r.n. 6. Robinul 0.1 mg IV q.4 p.r.n. secretions. 7. DuraTears. 8. Ativan 2 mg q.3 p.r.n. for agitation. 9. Metoprolol 5 mg p.r.n. for heart rates greater than 130. 10. NovoLog insulin sliding scale. 11. Protonix 40 mg IV daily. 12. Pneumococcal vaccine prior to discharge. 13. Lacosamide 200 mg IV q.12 hours. 14. Midazolam IV drip. 15. Diflucan 200 mg IV daily until October 09, 2016. All the discharge instructions were discussed with the nurse. Total time spent in his discharge, 35 minutes. Dictated by... Hamilton Mayer M.D. KATLYN/ch TD: 10/01/2016 12:11 JOB #: [id number] Unit #: [id number] #: [id number] Patient: MELANIA MACDONLAD DISCHARGE SUMMARY Page 1 of 1 X X DISCHARGE SUMMARY
--- NOTE | ~2016-09-16 | CR72 ---
[facility] A Service of [facility] RADIOLOGY TEXT RESULTS PATIENT: MELANIA MACDONALD LOCATION: [place]-10 : [birth year] UNIT #: [id number] AGE: [address]: Erna Luke MD SEX: M ORDER DR: [id number] [place] [address] [place], [place] [address] [id number] I MR#: [id number] Acc #: [id number] NAME: MELANIA MACDONALD : 1990 SEX: M STUDY DATE/TIME: 09/16/2016 5:53 UNIT: [facility] ROOM: [id number] STUDY DESCRIPTION: CR Chest Single View Portable Attending Physician: Erna Luke M.D. Ordering Physician: Milton Gupta M.D. Primary Care Physician: Primary Care Physician No MEDICAL IMAGING REPORT This report is preliminary unless electronic signature is present EXAM Portable chest INDICATION Endotracheal tube placement. COMPARISON 4:10 a.m. FINDINGS This portable view of the chest shows an endotracheal tube that is superimposed upon the tracheal air column. Tip is 1.5 cm above the lidia. The heart size and vascularity are normal and the lungs are clear. The stomach is slightly distended. IMPRESSION The endotracheal tube appears to be in the trachea since it is superimposed upon the tracheal air column and the tip is above the lidia. It is noted that the stomach is distended with gas and clinical correlation to ensure endotracheal tube position in the trachea and not the esophagus is recommended. The results were discussed with Dr. Mojica. Dictated by... Saeed Simmons M.D. THIS IS AN ELECTRONICALLY VERIFIED REPORT Saeed Simmons M.D. at 09/16/2016 11:44 AM SAFIA/chandan TD: 09/16/2016 07:47 JOB #: [id number] [facility] A Service [facility] RADIOLOGY TEXT RESULTS PATIENT: MELANIA MACDONALD LOCATION: [place]2-10 : [birth year] UNIT #: [id number] AGE: [address]: Erna Luke MD SEX: M ORDER DR: MEDICAL IMAGING REPORT Page 1 of 1 COPY
--- NOTE | ~2016-09-16 | MR18 ---
[facility] A Service of [facility] RADIOLOGY TEXT RESULTS PATIENT: MELANIA MACDONALD LOCATION: [address] : [birth year] UNIT #: [id number] AGE: [address]: Erna Luke MD SEX: M ORDER DR: [id number] [facility] [address] [facility]. [place], [place] [address] [id number] I MR#: [id number] Acc #: [id number] NAME: MELANIA MACDONALD : 1990 SEX: M STUDY DATE/TIME: 09/17/2016 11:31 UNIT: [facility] ROOM: [facility] STUDY DESCRIPTION: MR Brain Wo Contrast Attending Physician: Erna Luke M.D. Ordering Physician: Shannon Siddiqui M.D. Primary Care Physician: Primary Care Physician No MRI CENTER REPORT This report is preliminary unless electronic signature is present. EXAM Brain MRI HISTORY Acute respiratory failure with anoxic brain injury. Cardiopulmonary arrest with resuscitation on 09/16/2016. TECHNIQUE Multiplanar imaging of the brain was performed including diffusion weighted images. FINDINGS On diffusion weighted imaging there is no evidence of abnormal restricted diffusion to suggest a recent infarct. The routine brain images show normal ventricular size. No white matter signal abnormalities are seen. No mass lesion or hemorrhages are noted. No evidence of anoxic brain injury by MRI criteria. Extraaxial structures are remarkable for mucosal thickening in the ethmoid air cells and maxillary sinuses. IMPRESSION Mild chronic inflammatory sinus disease. Otherwise negative brain MRI. STAT * RESULT Dictated by... Madan Salazar M.D. THIS IS AN ELECTRONICALLY VERIFIED REPORT Madan Salazar M.D. at 09/17/2016 4:28 PM Radha TD: 09/17/2016 12:02 [facility] A Service of [facility] RADIOLOGY TEXT RESULTS PATIENT: MELANIA MACDONALD LOCATION: [address] : [birth year] UNIT #: [id number] AGE: [address]: Erna Luke MD SEX: M ORDER DR: JOB #: [id number] MRI CENTER REPORT Page 1 of 1 COPY
--- NOTE | ~2016-09-16 | CR71 ---
[facility] A Service of [facility] RADIOLOGY TEXT RESULTS PATIENT: MELANIA MACDONALD LOCATION: [address] : [birth year] UNIT #: [id number] AGE: [address]: Erna Luke MD SEX: M ORDER DR: [id number] [facility]. [place], [place] [address] [id number] I MR#: [id number] Acc #: [id number] NAME: MELANIA MACDONALD : 1990 SEX: M STUDY DATE/TIME: 09/21/2016 13:19 UNIT: [facility] ROOM: [facility] STUDY DESCRIPTION: CR Chest Single View Attending Physician: Erna Luke M.D. Ordering Physician: Jeffry Starr M.D. Primary Care Physician: Primary Care Physician No MEDICAL IMAGING REPORT This report is preliminary unless electronic signature is present EXAM Portable chest 09/21/2016 HISTORY Endotracheal tube placement today. Respiratory failure. Shortness of breath. COMPARISON Chest 09/18/2016 FINDINGS 2 frontal views of the chest were performed. One of the frontal views demonstrates retraction of the weighted enteric feeding tube, with tip projecting over the mid esophagus. The other frontal view demonstrates removal of the enteric tube. Endotracheal tube tip projects 4 cm above the lidia. Right IJ central venous catheter is stable. No pneumothorax. Lungs are clear. Heart size and mediastinum within normal limits. Scoliosis of the thoracic spine. IMPRESSION 2 frontal views of the chest were performed. One of the frontal views demonstrates a weighted enteric feeding tube retracted with tip in the mid esophagus. The other frontal view demonstrates removal of the enteric tube. Endotracheal tube tip projects 4 cm above the lidia. No pneumothorax. No other acute chest findings. Dictated by... Ulices Blackwood M.D. THIS IS AN ELECTRONICALLY VERIFIED REPORT Ulices Blackwood M.D. at 09/22/2016 8:45 AM JKB/psc [facility] A Service of [facility] RADIOLOGY TEXT RESULTS PATIENT: MELANIA MACDONALD LOCATION: [facility] CICCU2-10 : 91 UNIT #: [id number] AGE: [address]: Erna Luke MD SEX: M ORDER DR: TD: 09/22/2016 00:14 JOB #: [id number] MEDICAL IMAGING REPORT Page 1 of 1 COPY
--- NOTE | ~2016-09-16 | EE ---
Unit #: [id number] #: [id number] Patient: MELANIA MACDONALD [id number] [address] [address] [id number] I MR#: [id number] NAME: MELANIA MACDONALD : 1990 SEX: M STUDY DATE/TIME: 09/19/2016 UNIT: [facility] ROOM: [facility] STUDY DESCRIPTION: EEG Attending Physician: Erna Luke M.D. Referring Physician: Rupert Bell M.D. Primary Care Physician: No Primary Care Physician NEURODIAGNOSTICS REPORT PROCEDURE PERFORMED EEG. REASON FOR STUDY This is a repeat study to make sure the patient is not in status. Comparison to previous EEG was done. EEG DESCRIPTION This is an inpatient, portable, digitally recorded, multi-montage, adult EEG with leads placed according to the International 10-20 system. Hyperventilation and photic stimulation were not done. PROCEDURE REPORT This EEG shows 3-4 Hz mostly delta-type activity with higher amplitude. Reactivity was questionable. There was some muscle twitching- and jerking-type activity but nothing suggesting seizure or status. No clinical events were seen. Compared to previous EEG, which did show some slowing and burst suppression, and there may be some suppression episodes here, but otherwise, the diffuse spindles are not there anymore, but it is definitely very slow. The patient is still sedated on medication again. Again, nothing suggesting seizure or status. Clinical correlation is recommended. Dictated by... Sadi Prasad/vangie TD: 09/22/2016 10:08 JOB #: [id number] Unit #: [id number] #: [id number] Patient: MELANIA MACDONALD NEURODIAGNOSTICS REPORT Page 1 of 1 X Rupert Bell MD NEURODIAGNOSTICS REPORT
--- NOTE | ~2016-09-16 | CO ---
Unit #: [id number] #: [id number] Patient: MELANIA MACDONALD [id number] [address] [address] [id number] I MR#: [id number] NAME: MELANIA MACDONALD ROOM: [facility] Age: 26 Sex: M Admission Date: 09/16/2016 : 1990 Attending Physician: Erna Luke M.D. Primary Care Physician: No Primary Care Physician CONSULTATION REPORT REASON FOR CONSULTATION Status post PEA arrest. HISTORY OF PRESENT ILLNESS This is a 26-year-old, white male who was brought into the emergency room at [facility] because of dyspnea. The patient is currently intubated and is unable to provide a history. Therefore, information has been obtained as per the chart and family at the bedside. According to the emergency room records, the patient was using his inhaler at home and became short of breath. Within the last 1/2 block to the hospital, he lost consciousness. Upon arrival, the patient was unresponsive with no pulse. He was on PEA arrest. He was subsequently intubated. According to the parents, who are at bedside, he has had difficulty with breathing over the past two months. He has a history of asthma and his asthma has not been controlled. He apparently had no medication and has been borrowing inhalers from friends. He is unable to work because of his severe asthma. They report no prior cardiac history or testing in the past. His other risk factor for heart disease includes nicotine abuse. According to the code blue documentation, the patient was asystole and then there was regain of pulse after epinephrine. He was started on propofol and was subsequently transferred to the intensive care unit at this facility. eHe has not required any vasoactive support. PAST MEDICAL HISTORY 1. Asthma. 2. Active smoker. PAST SURGICAL HISTORY Right arm sarah placement. SOCIAL HISTORY The patient is living with his parents. He smokes a pack of cigarettes daily. There is no record of illicit drug use; however, urine drug screen positive for marijuana. ALLERGIES No known allergies. HOME MEDICATIONS No current home medications. REVIEW OF SYSTEMS Unable to obtain because the patient is currently intubated. Unit #: [id number] #: [id number] Patient: MELANIA MACDONALD PHYSICAL EXAMINATION VITAL SIGNS: Blood pressure 126/54, heart rate 101, temperature 99.1, and BMI 20. GENERAL: This is a well developed, 26-year-old, white male who is currently intubated and sedated. NECK: Trachea is midline. No thyromegaly or lymphadenopathy. No jugular venous distention. HEART: S1 and S2 heart sounds are normal. No murmurs, no rubs, and no clicks. Regular rate and rhythm. LUNGS: Clear without rales, rhonchi, or wheezes. ABDOMEN: Soft and nontender. Bowel sounds are present. EXTREMITIES: Without leg edema. SKIN: Warm and dry. DIAGNOSTIC STUDIES LABORATORY: Glucose 134, BUN 19, creatinine 1.5, sodium 144, and potassium 4.6. CK 355 and troponin less than 0.03 x2. Lactic acid 1.4. White count 20.5, hemoglobin 13.4, hematocrit 42.1, and platelet count 321. IMAGING: Chest x-ray shows no active disease. MRI of the brain shows chronic inflammation of the sinus, otherwise normal. CARDIOVASCULAR: Electrocardiogram: Normal sinus rhythm. Rate 87 beats per minute with right axis deviation, otherwise normal. IMPRESSION 1. Status post resuscitation from unwitnessed cardiac arrest. 2. History of bronchial asthma. 3. Anoxic encephalopathy. 4. Acute respiratory failure. 5. Generalized monoclonic seizures. PLAN 1. Cardiology was consulted post arrest. Will continue supportive care. 2. No requirement of vasoactive pressors at this time. 3. Continue IV fluids. 4. Sedation for seizure disorders. 5. Will follow the patient with you. Thank you for allowing us to assist in this patient's care. Dictated by... Rere RobertsPSebastianRAmilcar for Sadi Fenton/luis TD: 09/18/2016 09:54 JOB #: [id number] Unit #: [id number] #: [id number] Patient: MELANIA MACDONALD CONSULTATION REPORT Page 1 of 1 X Ermias Peoples APRN X CONSULTATION REPORT
--- NOTE | ~2016-09-16 | CO ---
Unit #: [id number] #: [id number] Patient: MELANIA MACDONALD [id number] [facility]. [place], [place] [address] [id number] I MR#: [id number] NAME: MELANIA MACDONALD ROOM: [facility] Age: 26 Sex: M Admission Date: 09/16/2016 : 1990 Attending Physician: Erna Luke M.D. Primary Care Physician: No Primary Care Physician Consultation Date: 09/17/2016 CONSULTATION REPORT CONSULTING PHYSICIAN Dr. Shannon Siddiqui REASON FOR CONSULT Status epilepticus. PATIENT IDENTIFICATION This is a 26-year-old, right handed male evaluated in ICU-10 at [facility]. SOURCE OF INFORMATION Taken from the patient's mother and father at the bedside as well as medical record and discussion with Dr. Siddiqui. HISTORY OF PRESENT ILLNESS This is a 26-year-old, right handed male with a past medical history of asthma since childhood. He presented to [facility] with acute respiratory failure, status asthmaticus. He actually presents here from [facility] secondary to acute exacerbation of asthma. The patient apparently doesn't have insurance and has had difficulty getting consistent care for his asthma. He apparently has been using his inhalers that he has very frequently for the last couple of weeks and has been having difficulty being active due to his breathing status. She denies, however, that he has had any fever, flu-like or cold symptoms or any cough, nausea, vomiting or diarrhea or generalized weakness. Apparently she had gone to work and the patient was at his baseline except that he is experiencing some shortness of air. She was later called that the patient had gone to the ER due to deteriorating respiratory status. Apparently at some point, the patient, after he arrived in the ER, he had lost his pulse and had gone into electrical activity and he was resuscitated immediately after a few minutes of CPR. There was a report that the patient self extubated once I believe in [facility] after he was transferred here though those details are not clear. The patient was admitted here in our ICU for treatment of status asthmaticus and acute respiratory failure and he was intubated and sedated. Neurology was asked to further evaluate as the patient was exhibiting questionable seizure-like activity and myoclonus when not sedated. He has received Cerebyx, Keppra and Vimpat. He has been seen and evaluated by myself as well as Dr. Bell today. We have evaluated him at length. He was reported to have a generalized seizure this morning. We initiated a sedation vacation as part of our evaluation. After several minutes of being on sedation, the patient initially appeared to have what looked like decerebrate posturing but once he spent a longer amount of time off sedation and became more awake, he clearly appeared to be withdrawing Unit #: [id number] #: [id number] Patient: RENAE,MELANIA rather than posturing. He does not follow commands. However, he does have myoclonus but there appears to be multifocal myoclonus and it sometimes appears to be more of a startle myoclonus type picture with repetitive movements upon eliciting noxious stimuli. He does not have any clear seizure activity and he does respond to pain consistently and equally. His pupils are reactive. His corneals are reactive and his doll's eyes are positive. Toes are upgoing bilaterally. He went for an MRI of the brain without contrast this morning which shows mild chronic inflammatory sinus disease but is otherwise negative. No evidence of hypoxia or anoxia. No seizure focus, however, was done without contrast. No prior imaging available for review or comparison. He had an EEG done as well which does not show any seizure or status. It does show some slowing. PAST MEDICAL HISTORY 1. Asthma. His mother states that he has had difficulties with asthma since the age of [age]. 2. Berny placement in his right arm. ALLERGIES No known drug allergies. FAMILY HISTORY Positive for CAD. SOCIAL HISTORY The patient smokes a half pack per day of tobacco. No history of alcoholism or drug use. The patient is currently not employed and uninsured. HOME MEDICATIONS I have no medication reconciliation form available at this time. He does take albuterol inhalers but a full list of his medications are not known at this time. REVIEW OF SYSTEMS Unable to obtain from the patient given his intubation, sedation and medical condition. PHYSICAL EXAMINATION VITAL SIGNS: Temperature 99.1, pulse 101, respirations 16, blood pressure 126/54, oxygen saturation 100% on the ventilator. Height 5 feet 9 inches, weight 134 pounds. BMI 20. NEUROLOGIC EXAM: The patient is intubated. He is heavily sedated; however, as discussed above he did do a sedation vacation. On sedation vacation, the patient exhibits what looks like some multifocal myoclonus, some questionable startle myoclonus with noxious stimuli elicited. He is intubated, unable to evaluate speech or cognition. He is not following any commands. He withdraws equally for noxious stimuli. CRANIAL NERVE EXAM: Unable to evaluate ayala of vision. However, eyes are conjugate without ptosis or nystagmus. Pupils equal, round, reactive, 3+, brisk. Extraocular movements are intact. Unable to assess sensation on face and strength or strength of muscles of facial expression. No asymmetry seen. Hearing is unable to be assessed. Tongue, uvula and palate are unable to be assessed. Head turning is unremarkable spontaneously. Neck is supple. MOTOR EXAM: As discussed above. SENSORY EXAM: As discussed above. Unit #: [id number] #: [id number] Patient: RENAE,MELANIA GAIT AND ROMBERG: Deferred. REFLEXES: 1 out of 4. Toes are upgoing bilaterally. COORDINATION: Unable to assess. DIAGNOSTIC STUDIES Please see above. LABORATORY: CPK 355, troponin less than 0.03. Blood cultures preliminary - no growth after 24 hours x2 sets. HIV is nonreactive. Urine culture preliminary - no growth after 24 hours. White blood cell count 20.5, hemoglobin 13.4, hematocrit 42.1, platelet count is 321. Sodium 144, potassium 4.6, chloride 114, CO2 22, glucose 134, BUN 19, creatinine is 1.5, estimated GFR 63.8, calcium 8.6, AST 27, ALT 24, alkaline phos. 61, total protein 6.5, albumin 3.8. Arterial blood gas from this morning - pH 7.365, pCO2 37.5, pO2 118, bicarb 21.5, O2 sat 98% on 5 of PEEP, 40% FIO2. Influenzae A and B negative. Lactic acid 4.4. Urine drug screen positive for marijuana. Initial lactic acid 7.2, PT 12.6, INR 1.1, PTT 26.5. IMPRESSION 1. Acute respiratory failure/status asthmaticus. 2. Altered mental status with multifocal versus (1) myoclonus. 3. Questionable seizure: Continue seizure medications. EEG not suggestive of status epilepticus. Clinical exam not currently suggestive of status epilepticus. 4. History of asthma. 5. Tobacco use. 6. Status post pulseless electrical activity/arrest. Please note - not discussed above, it looks like the patient experienced arrest at this facility on 09/16/16 at 0314 hours rather than prior to arrival. 7. Acute kidney injury. PLAN EEG as discussed above. Nothing to suggest seizure or status epilepticus. MRI of the brain without contrast does not show any grossly abnormal findings. Nothing to suggest anoxic brain injury at this time. Will continue Vimpat and Keppra. He did receive a dose of Cerebyx. Will monitor the patient closely. Patient has been seen by Dr. Bell and he agrees with above. We have discussed imaging findings with the patient's mother at the bedside and discussed with the team multiple times. What is concerning is that he does appear to have some (2) myoclonus but appears to have more withdrawal type picture whenever he wakes up though initially it looked as though he may have been posturing. His MRI looks okay. His EEG was slow with spindles diffusely but nothing to suggest active seizure so the above could be secondary to sedation. We cannot absolutely 100% rule out anoxic damage though his MRI looks unremarkable Unit #: [id number] #: [id number] Patient: MELANIA MACDONALD at this time. We will continue to follow him very closely clinically and further recommendations pending further clinical course. Any repeat imaging pending clinical re-evaluation. Please call for any questions or issues. We thank you very much for allowing us to assist in the care of this patient. Dictated by... Rere DovePSebastianRAmilcar for Sadi Prasad/eron TD: 09/18/2016 11:08 JOB #: [id number] CONSULTATION REPORT Page 1 of 1 X Bina Juárez APRN X CONSULTATION REPORT
--- NOTE | ~2016-09-16 | CT57 ---
[facility] A Service of [facility] RADIOLOGY TEXT RESULTS PATIENT: MELANIA MACDONALD LOCATION: [address] : [birth year] UNIT #: [id number] AGE: [address]: Brayden Ramirez MD SEX: M ORDER DR: [id number] [facility]. [place], [place] [address] [id number] I MR#: [id number] Acc #: [id number] NAME: MELANIA MACDONLAD : 1990 SEX: M STUDY DATE/TIME: 09/26/2016 0:13 UNIT: [facility] ROOM: [facility] STUDY DESCRIPTION: CT Chest Wo Cont Attending Physician: Brayden Ramirez M.D. Ordering Physician: Jeffry Starr M.D. Primary Care Physician: Primary Care Physician No MEDICAL IMAGING REPORT This report is preliminary unless electronic signature is present EXAM CT scan of the chest without contrast INDICATIONS Fever, evaluate endotracheal tube, respiratory failure; patient had a tracheostomy tube placed 09/16/2016. Status post cardiac arrest. TECHNIQUE Axial 5-mm images were obtained through the chest without IV contrast. This CT exam was performed with one or more of the following radiation dose reduction techniques: Automatic exposure control, adjustment of mA and/or kV according to patient size, and iterative reconstruction. FINDINGS A tracheostomy tube is present and appears to be in good position. Aorta is normal in size and there is no adenopathy. There is minimal xrkvc-sxcvfka-qjwu-left base atelectasis. IMPRESSION 1. Tracheostomy tube is in good position. 2. Xapjs-bqcosfw-vwrb-left basilar atelectasis. 3. Please see the abdomen CT scan for abdomen findings. Dictated by... Saeed Simmons M.D. THIS IS AN ELECTRONICALLY VERIFIED REPORT Saeed Simmons M.D. at 09/26/2016 1:14 PM FEL/psc TD: 09/26/2016 02:04 [facility] A Service of [facility] RADIOLOGY TEXT RESULTS PATIENT: MELANIA MACDONALD LOCATION: [facility] CICCU2-10 : [birth year] UNIT #: [id number] AGE: [address]: Brayden Ramirez MD SEX: M ORDER DR: JOB #: [id number] MEDICAL IMAGING REPORT Page 1 of 1 COPY
--- NOTE | ~2016-09-16 | EKG ---
PATIENT: MELANIA MACDONALD UNIT #: [id number] Ventricular Rate: 96 BPM Atrial Rate: 96 BPM P-R Interval: 136 ms QRS Duration: 86 ms Q-T Interval: 328 ms QTC Calculation(Bezet): 414 ms P Redwood: 62 degrees Calculated R Redwood: 88 degrees Calculated T Redwood: 67 degrees Diagnosis Line: Normal sinus rhythm Diagnosis Line: Normal ECG Diagnosis Line: When compared with ECG of 19-SEP-2016 06:13, Diagnosis Line: Nonspecific T wave abnormality has replaced Diagnosis Line: inverted T waves in Inferior leads Diagnosis Line: Confirmed by LUIS MIGUEL LOPEZ MD ([id number]) on 09/23/2016 Diagnosis Line: 5:46:54 AM INTERPRETING MD: JESSICA ALMENDAREZ
--- NOTE | ~2016-09-16 | US6 ---
[facility] A Service of [facility] RADIOLOGY TEXT RESULTS PATIENT: MELANIA MACDONALD LOCATION: [address] : [birth year] UNIT #: [id number] AGE: [address]: Brayden Ramirez MD SEX: M ORDER DR: [id number] [facility] [address] [facility]. [place], [place] [address] [id number] I MR#: [id number] Acc #: [id number] NAME: MELANIA MACDONALD : 1990 SEX: M STUDY DATE/TIME: 09/25/2016 22:32 UNIT: [facility] ROOM: [facility] STUDY DESCRIPTION: US Abdominal Limited Attending Physician: Brayden Ramirez M.D. Ordering Physician: Jeffry Starr M.D. Primary Care Physician: Primary Care Physician No MEDICAL IMAGING REPORT This report is preliminary unless electronic signature is present EXAM Right upper quadrant ultrasound INDICATIONS Abnormal elevated lipase and amylase. FINDINGS Patient has a PEG tube and bandages over the upper abdomen. The pancreas could not be evaluated. Liver appeared unremarkable. Right kidney does not show any mass or hydronephrosis. The gallbladder is adequately distended and appears normal and there are no stones. The common bile duct is normal in size. The portal vein is 8 mm in diameter with flow into the liver. The right kidney is 11.4 cm in length. IMPRESSION 1. The pancreas could not be evaluated and the rest of the right upper quadrant structures are normal. Dictated by... Saeed Simmons M.D. THIS IS AN ELECTRONICALLY VERIFIED REPORT Saeed Simmons M.D. at 09/26/2016 5:05 AM FEL/psc TD: 09/25/2016 23:48 JOB #: [id number] MEDICAL IMAGING REPORT Page 1 of 1 COPY
--- NOTE | ~2016-09-16 | MR17 ---
[facility] A Service of [facility] & [facility] RADIOLOGY TEXT RESULTS PATIENT: MELANIA MACDONALD LOCATION: [address] : [birth year] UNIT #: [id number] AGE: [address]: Erna Luke MD SEX: M ORDER DR: [id number] [facility] [address] [place], [place] [address] [id number] I MR#: [id number] Acc #: [id number] NAME: MELANIA MACDONALD : 1990 SEX: M STUDY DATE/TIME: 09/19/2016 17:47 UNIT: [facility] ROOM: [place] STUDY DESCRIPTION: MR Brain WWo Contrast Attending Physician: Erna Luke M.D. Ordering Physician: Hamilton Mayer M.D. Primary Care Physician: Primary Care Physician No MRI CENTER REPORT This report is preliminary unless electronic signature is present. EXAM MRI of the brain with and without contrast dated 09/19/2016 COMPARISON MRI brain without contrast dated 09/17/2016. HISTORY Patient had an asthma attack with acute respiratory failure and was on vent. There is suspicion for anoxic encephalopathy. Patient has myoclonus. FINDINGS Multisequence, multiplanar imaging of the brain was obtained with and without contrast. GFR measured greater than 60. 13 mL of MultiHance was administered intravenously. Motion artifact is noted in multiple images despite repeats. After giving allowances to the motion artifact, no obvious acute stroke, enhancing intracranial mass, mass effect, midline shift or hydrocephalus. Evaluation of subtle lesions are limited given the significant motion artifact. Age-appropriate parenchymal volume is seen. The nasal septum is deviated to the right in the posterior aspect. There is mild paranasal sinus mucosal thickening. Orbits with the ocular structures and mastoids demonstrate mild bilateral mastoid mucosal thickening. IMPRESSION 1. Significant motion artifact is noted despite repeats, limiting evaluation. 2. No evidence of acute stroke, large hemorrhage, hydrocephalus or midline shift. Subtle lesions cannot be excluded given the motion artifact. Dictated by... Bridgette Stahl M.D. [facility] A Service of [facility] & [facility] RADIOLOGY TEXT RESULTS PATIENT: MELANIA MACDONALD LOCATION: CIC2 CICCU2-10 : [birth year] UNIT #: [id number] AGE: [address]: Erna Luke MD SEX: M ORDER DR: THIS IS AN ELECTRONICALLY VERIFIED REPORT Bridgette Stahl M.D. at 09/22/2016 1:39 PM CPR/mjs TD: 09/20/2016 13:19 JOB #: [id number] MRI CENTER REPORT Page 1 of 1 COPY
--- NOTE | ~2016-09-16 | EKG ---
PATIENT: MELANIA MACDONALD UNIT #: [id number] Ventricular Rate: 66 BPM Atrial Rate: 66 BPM P-R Interval: 140 ms QRS Duration: 84 ms Q-T Interval: 370 ms QTC Calculation(Bezet): 387 ms P [place]: 9 degrees Calculated R [place]: 76 degrees Calculated T [place]: 70 degrees Diagnosis Line: Normal sinus rhythm Diagnosis Line: Normal ECG Diagnosis Line: When compared with ECG of 22-SEP-2016 16:44, Diagnosis Line: No significant change was found Diagnosis Line: Confirmed by ALESSANDRA DELA CRUZ MD ([id number]) on Diagnosis Line: 09/24/2016 5:40:31 AM INTERPRETING COLLETTE SILVA
--- NOTE | ~2016-09-16 | EKG ---
PATIENT: MELANIA MACDONALD UNIT #: [id number] Ventricular Rate: 117 BPM Atrial Rate: 117 BPM P-R Interval: 148 ms QRS Duration: 86 ms Q-T Interval: 326 ms QTC Calculation(Bezet): 454 ms P [place]: 70 degrees Calculated R [place]: 88 degrees Calculated T [place]: 33 degrees Diagnosis Line: Sinus tachycardia Diagnosis Line: Nonspecific ST abnormality Diagnosis Line: Abnormal ECG Diagnosis Line: When compared with ECG of 17-SEP-2016 13:28, Diagnosis Line: T wave inversion now evident in Inferior leads Diagnosis Line: Nonspecific T wave abnormality now evident in Diagnosis Line: Lateral leads Diagnosis Line: Confirmed by CUATE TERRY MD ([id number]) on Diagnosis Line: 09/20/2016 4:46:56 PM INTERPRETING MD: ALAN
--- NOTE | ~2016-09-16 | CR72 ---
[facility] A Service of [facility] & [facility] RADIOLOGY TEXT RESULTS PATIENT: MELANIA MACDONALD LOCATION: [place] [address]-10 : 91 UNIT #: [id number] AGE: [address]: Brayden Ramirez MD SEX: M ORDER DR: [id number] [facility] [address] [place], [place] [address] [id number] I MR#: [id number] Acc #: [id number] NAME: MELANIA MACDONALD : 1990 SEX: M STUDY DATE/TIME: 09/27/2016 4:36 UNIT: [facility] ROOM: [facility] STUDY DESCRIPTION: CR Chest Single View Portable Attending Physician: Brayden Ramirez M.D. Ordering Physician: Jeffry Starr M.D. Primary Care Physician: No Primary Care Physician MEDICAL IMAGING REPORT This report is preliminary unless electronic signature is present EXAM AP portable chest 09/27/2016 HISTORY Respiratory failure. Follow up pulmonary status. TECHNIQUE AP portable chest x-ray. FINDINGS The exam shows no change since yesterday. Tracheostomy tube and PICC in good position. Heart size normal. The lungs are clear. No pleural effusion. Spinal curvature. IMPRESSION Stable portable chest radiograph, unchanged since yesterday. Dictated by... Cole Crespo M.D. THIS IS AN ELECTRONICALLY VERIFIED REPORT Cole Crespo M.D. at 09/27/2016 5:58 AM EMELIAW/sadi TD: 09/27/2016 05:06 JOB #: [id number] MEDICAL IMAGING REPORT Page 1 of 1 COPY
--- NOTE | ~2016-09-16 | CR72 ---
[facility] A Service of [facility] & [facility] & [facility] RADIOLOGY TEXT RESULTS PATIENT: MELANIA MACDONALD LOCATION: CICCU2 CICCU2-10 : 91 UNIT #: [id number] AGE: [address]: Erna Luke MD SEX: M ORDER DR: [id number] [place] [id number] E MR#: [id number] Acc #: [id number] NAME: MELANIA MACDONALD : 1990 SEX: M STUDY DATE/TIME: 09/16/2016 04:10 UNIT: SED ROOM: STUDY DESCRIPTION: CR Chest Single View Portable Attending Physician: Milton Gupta M.D. Ordering Physician: Darius Castro M.D. Primary Care Physician: Primary Care Physician No MEDICAL IMAGING REPORT This report is preliminary unless electronic signature is present. EXAM Portable chest 09/16/2016 at 04:10 INDICATION Endotracheal tube replacement. FINDINGS Supine view of the chest was obtained. ET tube is well positioned in the mid trachea. Lungs remain clear and there is no pneumothorax. Dictated by... Madan Garcia Jr., M.D. THIS IS AN ELECTRONICALLY VERIFIED REPORT Madan Garcia Jr., M.D. at 09/16/2016 10:39 PM GREGORY/chandan TD: 09/16/2016 07:08 JOB #: [id number] MEDICAL IMAGING REPORT Page 1 of 1
--- NOTE | ~2016-09-16 | CR71 ---
[facility] A Service of [facility] & [facility] RADIOLOGY TEXT RESULTS PATIENT: MELANIA MACDONALD LOCATION: [address] : [birth year] UNIT #: [id number] AGE: [address]: Erna Luke MD SEX: M ORDER DR: [id number] [facility] [address] [place], [place] [address] [id number] I MR#: [id number] Acc #: [id number] NAME: MELANIA MACDONALD : 1990 SEX: M STUDY DATE/TIME: 09/22/2016 5:55 UNIT: [facility] ROOM: [facility] STUDY DESCRIPTION: CR Chest Single View Attending Physician: Erna Luke M.D. Ordering Physician: Jeffry Starr M.D. Primary Care Physician: No Primary Care Physician MEDICAL IMAGING REPORT This report is preliminary unless electronic signature is present EXAM AP portable chest, 09/22/2016. HISTORY Respiratory failure. Patient on ventilator. TECHNIQUE AP portable upright chest x-ray. FINDINGS The exam shows no change since yesterday. Endotracheal tube and right IJ central line remain in good position. The lungs are clear. No visible pneumothorax, pulmonary infiltrate, or pleural effusion. Scoliosis. IMPRESSION Stable portable chest radiograph, unchanged since yesterday. Support devices in good position. Dictated by... Cole Crespo M.D. THIS IS AN ELECTRONICALLY VERIFIED REPORT Cole Crespo M.D. at 09/22/2016 3:54 PM EMELIAW/rob TD: 09/22/2016 09:40 JOB #: [id number] MEDICAL IMAGING REPORT Page 1 of 1 COPY
--- NOTE | ~2016-09-16 | OR ---
Unit #: [id number] #: [id number] Patient: MELANIA MACDONALD [id number] [address] [address] [id number] I MR#: [id number] NAME: MELANIA MACDONALD ROOM: [facility] Date of Procedure: 09/22/2016 Admission Date: 09/16/2016 Surgeon: Darius Medina M.D. : 1990 Attending Physician: Erna Luke M.D. OPERATIVE REPORT PREOPERATIVE DIAGNOSIS Ventilator dependence. POSTOPERATIVE DIAGNOSIS Ventilator dependence. PROCEDURE PERFORMED Tracheostomy. ANESTHESIA General anesthesia. ESTIMATED BLOOD LOSS Minimal. IV FLUIDS 500 crystalloid. COMPLICATIONS None. INDICATIONS FOR PROCEDURE The patient is a 26-year-old, who is ventilator dependent. DESCRIPTION OF PROCEDURE The patient was taken to the operating theater and placed in a supine position. General anesthesia was induced. The abdomen was prepped and draped. An area in his anterior cervical region was anesthetized with 1% lidocaine with epinephrine. A vertical incision was then made. This was carried down through the platysma and then through superficial strap muscles. I identified the isthmus of the thyroid. This was . I then identified the first, second, and third rings of the trachea. Lateral retention sutures with Ethibond were then placed. Incision was then made and then an 8-Shiley trachea tube placed into the trachea under direct vision. Its position was confirmed with return of end-tidal CO2. This was then secured with 0 Ethibond sutures to the skin and reinforced with trach tape. The patient tolerated the procedure well and sent to recovery room in good condition. Dictated by... Darius Medina M.D. Unit #: [id number] #: [id number] Patient: MELANIA MACDONALD JNO/modl TD: 09/23/2016 02:24 JOB #: [id number] OPERATIVE REPORT Page 1 of 1 X Darius Medina MD X PROCEDURE OPERATIVE NOTE
--- NOTE | ~2016-09-16 | CR72 ---
[facility]. [facility] A Service of [facility] & [facility] RADIOLOGY TEXT RESULTS PATIENT: MELANIA MACDONALD LOCATION: CICCU2 CICCU2-10 : [birth year] UNIT #: [id number] AGE: [address]: Erna Luke MD SEX: M ORDER DR: [id number] [place] [id number] E MR#: [id number] Acc #: [id number] NAME: MELANIA MACDONALD : 1990 SEX: M STUDY DATE/TIME: 09/16/2016 03:24 UNIT: SED ROOM: STUDY DESCRIPTION: CR Chest Single View Portable Attending Physician: Milton Gupta M.D. Ordering Physician: Darius Castro M.D. Primary Care Physician: Primary Care Physician No MEDICAL IMAGING REPORT This report is preliminary unless electronic signature is present. EXAM Portable chest 09/16/2016 at 03:24 INDICATION Tube placement. Patient unresponsive. FINDINGS AP portable chest compared with 10/23/2015. ET tube in the inc-sf-hmlcc trachea in good position. Lungs are clear. Bases are not completely included in the field of view. Heart size normal. No pneumothorax. Dictated by... Madan Garcia Jr., M.D. THIS IS AN ELECTRONICALLY VERIFIED REPORT Madan Garcia Jr., M.D. at 09/16/2016 10:37 PM GREGORY/chandan TD: 09/16/2016 06:51 JOB #: [id number] MEDICAL IMAGING REPORT Page 1 of 1
--- NOTE | ~2016-09-16 | CR72 ---
[facility] A Service of [facility] & [facility] RADIOLOGY TEXT RESULTS PATIENT: MELANIA MACDONALD LOCATION: [place] [address]10 : 91 UNIT #: [id number] AGE: [address]: Hamilton Mayer MD SEX: M ORDER DR: [id number] [facility] [address] [place], [place] [address] [id number] I MR#: [id number] Acc #: [id number] NAME: MELANIA MACDONALD : 1990 SEX: M STUDY DATE/TIME: 09/28/2016 6:20 UNIT: [facility] ROOM: [facility] STUDY DESCRIPTION: CR Chest Single View Portable Attending Physician: Brayden Ramirez M.D. Ordering Physician: Jeffry Starr M.D. Primary Care Physician: Primary Care Physician No MEDICAL IMAGING REPORT This report is preliminary unless electronic signature is present EXAM Portable chest. INDICATIONS Respiratory failure today. PROCEDURE Frontal view chest. COMPARISON 09/27/2016 FINDINGS Heart size unchanged. Tracheostomy tube is stable. No new dense consolidation or visible pneumothorax. IMPRESSION Stable. Dictated by... Manny Loja M.D. THIS IS AN ELECTRONICALLY VERIFIED REPORT Manny Loja M.D. at 09/29/2016 9:42 AM Anthony TD: 09/28/2016 08:24 JOB #: [id number] MEDICAL IMAGING REPORT Page 1 of 1 COPY
--- NOTE | ~2016-09-16 | OR ---
Unit #: [id number] #: [id number] Patient: MELANIA MACDONALD [id number] [address] [address] [id number] I MR#: [id number] NAME: MELANIA MACDONALD ROOM: [facility] Date of Procedure: 09/22/2016 Admission Date: 09/16/2016 Surgeon: Chris Nielsen M.D. : 1990 Attending Physician: Erna Luke M.D. OPERATIVE REPORT PREOPERATIVE DIAGNOSES Need for bypass feeds and nutritional support. POSTOPERATIVE DIAGNOSES Need for bypass feeds and nutritional support. PROCEDURES PERFORMED 1. Esophagogastroduodenoscopy. 2. Placement of percutaneous endoscopic gastrostomy tube. ANESTHESIA Monitored anesthesia care. FINDINGS The PEG was placed in good position. SPECIMENS None. COMPLICATIONS None apparent. CONDITION The patient tolerated the procedure well. INDICATIONS FOR PROCEDURE The patient is a 26-year-old white male, who was admitted in cardiopulmonary arrest after exacerbation of asthma. He is currently on a ventilator and is having difficulty weaning. He is going to have tracheostomy tube placed later today. He presents at this time for PEG tube placement. DESCRIPTION OF PROCEDURE After obtaining informed consent from the patient's parents as well as receiving preoperative antibiotics, the patient who was in the intensive care unit was underwent monitored anesthesia care, had the endoscope placed through the mouth into the upper esophagus under direct vision. It was advanced to the second portion of the duodenum without difficulty with the lumen always in view. The duodenum was normal as was the duodenal bulb. The pylorus opened normally. On retroflexion back to the GE junction, there was no abnormality seen in the proximal third, middle third, or incisura. The antrum appeared normal except for some mild Unit #: [id number] #: [id number] Patient: MELANIA MACDONALD gastritis. The light was easily seen in the epigastric area of the abdomen. On palpation of this area, the digital depression was easily seen within the gastric lumen. The upper abdomen was prepped and draped in a sterile fashion. A small stab incision made with 11-blade and a 16-gauge thin-walled needle was used to pass through the abdominal wall into the gastric wall into the gastric lumen. A guidewire was threaded and was grasped with a snare and pulled out through the mouth. The PEG tube was placed over the guidewire and out through the abdominal wall and pulled up until the bolster came to get rest against the gastric mucosa. An external bolster was placed into proper position. There was a 1/4 to 1/2-inch of slack between the two, so there would not be ischemic necrosis between the 2 bolsters. The endoscope was placed back into the upper esophagus under direct vision and advanced into the stomach. The PEG was in good position with good hemostasis. The scope was pulled back above the GE junction, and there was no abnormality seen. The remaining portion of the esophagus was within normal limits. Laryngeal structures were unable to be visualized. The endoscope was removed without difficulty. A dressing was placed around the PEG site with antibiotic ointment. An abdominal binder was placed. Dictated by... Sadi Silva/salas TD: 09/23/2016 00:09 JOB #: [id number] CC: [facility] OPERATIVE REPORT Page 1 of 1 X Chris Nielsen MD X PROCEDURE OPERATIVE NOTE
--- NOTE | ~2016-09-16 | EKG ---
PATIENT: MELANIA MACDONALD UNIT #: [id number] Ventricular Rate: 87 BPM Atrial Rate: 87 BPM P-R Interval: 154 ms QRS Duration: 92 ms Q-T Interval: 366 ms QTC Calculation(Bezet): 440 ms P [place]: 66 degrees Calculated R [place]: 99 degrees Calculated T [place]: 73 degrees Diagnosis Line: Normal sinus rhythm Diagnosis Line: Rightward axis Diagnosis Line: Cannot rule out high lateral wall [place] Diagnosis Line: Borderline ECG Diagnosis Line: When compared with ECG of 16-SEP-2016 03:26, Diagnosis Line: (unconfirmed) Diagnosis Line: ST elevation now present in Inferior leads Diagnosis Line: Confirmed by LUIS MIGUEL LOPEZ MD ([id number]) on 09/18/2016 Diagnosis Line: 7:58:45 PM INTERPRETING MD: JESSICA ALMENDAREZ
--- NOTE | ~2016-09-16 | CR72 ---
[facility] A Service of [facility] & [facility] RADIOLOGY TEXT RESULTS PATIENT: MELANIA MACDONALD LOCATION: [place] [address]10 : 91 UNIT #: [id number] AGE: [address]: Brayden Ramirez MD SEX: M ORDER DR: [id number] [facility] [address] [place], [place] [address] [id number] I MR#: [id number] Acc #: [id number] NAME: MELANIA MACDONALD : 1990 SEX: M STUDY DATE/TIME: 09/24/2016 4:30 UNIT: [facility] ROOM: [facility] STUDY DESCRIPTION: CR Chest Single View Portable Attending Physician: Erna Luke M.D. Ordering Physician: Jeffry Starr M.D. Primary Care Physician: Primary Care Physician No MEDICAL IMAGING REPORT This report is preliminary unless electronic signature is present EXAM Portable chest. HISTORY Follow up tracheostomy tube and central venous catheter. FINDINGS Today's portable view of the chest shows no change from yesterday's study. The central venous catheter and tracheostomy tube are in good position. The lungs are clear. There is stable scoliosis. Dictated by... Saeed Simmons M.D. THIS IS AN ELECTRONICALLY VERIFIED REPORT Saeed Simmons M.D. at 09/24/2016 2:21 PM SAFIA/ebenezer TD: 09/24/2016 06:57 JOB #: [id number] MEDICAL IMAGING REPORT Page 1 of 1 COPY
--- NOTE | ~2016-09-16 | OR ---
Unit #: [id number] #: [id number] Patient: MELANIA MACDONALD [id number] [address] [address] [id number] I MR#: [id number] NAME: MELANIA MACDONALD ROOM: [facility] Date of Procedure: 09/16/2016 Admission Date: 09/16/2016 Surgeon: Serjio Siddiqui M.D. : 1990 Attending Physician: Erna Luke M.D. Primary Care Physician: Esha Primary Care Physician PROCEDURE OPERATIVE NOTE PROCEDURE Right internal jugular venous catheter placement with ultrasound guidance. INDICATION FOR PROCEDURE Status post cardiac arrest. PERFORMING PHYSICIAN Serjio Siddiqui M.D. ENTRY DRIVER OPERATOR MOODY Syed. DESCRIPTION OF THE PROCEDURE Informed consent was obtained from the mom after explaining the benefits and risks of this procedure. The patient was prepped and positioned in proper way. Then chlorhexidine was applied to the right IJ. With ultrasound guidance, a needle was inserted in the right IJ until blood flow was obtained. Then, a guidewire was inserted, and the needle was removed. Then, a dilator was used to create a tract for the catheter. Then, a catheter was inserted over the guidewire, and the guidewire was removed. Then, the catheter was sutured in place with no complications. A STAT chest x-ray confirmed placement with no immediate complications. The patient tolerated his procedure well. Dictated by... Serjio Siddiqui M.D. EA/vangie TD: 09/18/2016 07:46 JOB #: [id number] Unit #: [id number] #: [id number] Patient: MELANIA MACDONALD PROCEDURE OPERATIVE NOTE Page 1 of 1 X SERJIO KOROMA MD PROCEDURE OPERATIVE NOTE
--- NOTE | ~2016-09-16 | CR72 ---
[facility] A Service of [facility] & [facility] RADIOLOGY TEXT RESULTS PATIENT: MELANIA MACDONALD LOCATION: [address] : [birth year] UNIT #: [id number] AGE: [address]: Hamilton Mayer MD SEX: M ORDER DR: [id number] [facility] [address]. [place], [place] [address] [id number] I MR#: [id number] Acc #: [id number] NAME: MELANIA MACDONALD : 1990 SEX: M STUDY DATE/TIME: 09/30/2016 4:43 UNIT: [facility] ROOM: [facility] STUDY DESCRIPTION: CR Chest Single View Portable Attending Physician: Hamilton Mayer M.D. Ordering Physician: Jeffry Starr M.D. Primary Care Physician: Primary Care Physician No MEDICAL IMAGING REPORT This report is preliminary unless electronic signature is present EXAM AP portable chest 09/30/2016 HISTORY Respiratory failure. Tracheostomy. History of status epilepticus. TECHNIQUE AP portable chest x-ray. FINDINGS The exam shows no change since 09/28/2016. The lungs are expanded and clear with no visible pneumothorax, pulmonary infiltrate or pleural effusion. Tracheostomy tube and right arm PICC in satisfactory position. IMPRESSION Stable portable chest radiograph, unchanged since 09/28/2016. Support equipment in good position. Dictated by... Cole Crespo M.D. THIS IS AN ELECTRONICALLY VERIFIED REPORT Cole Crespo M.D. at 09/30/2016 9:53 PM KENNETH/chandan TD: 09/30/2016 07:03 JOB #: [id number] MEDICAL IMAGING REPORT Page 1 of 1 COPY
--- NOTE | ~2016-09-16 | EE ---
Unit #: [id number] #: [id number] Patient: MELANIA MACDONALD [id number] [address] [address] [id number] I MR#: [id number] NAME: MELANIA MACDONALD : 1990 SEX: M STUDY DATE/TIME: 09/17/2016 UNIT: [facility] ROOM: [facility] STUDY DESCRIPTION: EEG Attending Physician: Erna Luke M.D. Referring Physician: Shannon Siddiqui M.D. Primary Care Physician: No Primary Care Physician NEURODIAGNOSTICS REPORT PROCEDURE PERFORMED EEG. REASON FOR STUDY Possible hypoxia, myoclonic jerks, rule out seizures or status. EEG DESCRIPTION This is an inpatient, portable, multi-montage, adult EEG with leads placed according to the International 10-20 system. Hyperventilation and photic stimulation were not done. PROCEDURE REPORT This EEG showed diffuse slowing. Occasionally burst suppressions were seen, and at certain points, diffuse spindles were seen. No seizures. No status. No interictal discharges. The activity was questionable. Some artifact was seen. No active status was seen. Again, the patient was sedated. This was probably a suboptimal recording secondary to sedation, so clinical correlation is recommended. Dictated by... Sadi Prasad/vangie TD: 09/18/2016 08:37 JOB #: [id number] NEURODIAGNOSTICS REPORT Page 1 of 1 X Rupert Bell MD NEURODIAGNOSTICS REPORT
--- NOTE | ~2016-09-16 | CR72 ---
[facility] A Service of [facility] & [facility] RADIOLOGY TEXT RESULTS PATIENT: MELANIA MACDONALD LOCATION: [place] [address] : 91 UNIT #: [id number] AGE: [address]: Erna Luke MD SEX: M ORDER DR: [id number] [facility] [address] [place], [place] [address] [id number] I MR#: [id number] Acc #: [id number] NAME: MELANIA MACDONALD : 1990 SEX: M STUDY DATE/TIME: 09/18/2016 5:51 UNIT: [facility] ROOM: [facility] STUDY DESCRIPTION: CR Chest Single View Portable Attending Physician: Erna Luke M.D. Ordering Physician: Shannon Siddiqui M.D. Primary Care Physician: Primary Care Physician No MEDICAL IMAGING REPORT This report is preliminary unless electronic signature is present EXAM AP portable chest 09/18/2016 HISTORY Respiratory failure. Patient on ventilator. Follow up cardiopulmonary status. TECHNIQUE AP portable chest x-ray. FINDINGS The exam shows no change since yesterday. Endotracheal tube, right IJ central line and Dobbhoff feeding tube remain in good position. The lungs are clear. Heart size normal. IMPRESSION No change since yesterday. Support devices in good position. Dictated by... Cole Crespo M.D. THIS IS AN ELECTRONICALLY VERIFIED REPORT Cole Crespo M.D. at 09/18/2016 1:32 PM KENNETH/chandan TD: 09/18/2016 07:20 JOB #: [id number] MEDICAL IMAGING REPORT Page 1 of 1 COPY
--- NOTE | ~2016-09-16 | CR7 ---
[facility] A Service of [facility] RADIOLOGY TEXT RESULTS PATIENT: MELANIA MACDONALD LOCATION: [address] : [birth year] UNIT #: [id number] AGE: [address]: Erna Luke MD SEX: M ORDER DR: [id number] [facility] [address] [place], [place] [address] [id number] MR#: [id number] Acc #: [id number] NAME: MELANIA MACDONALD : 1990 SEX: M STUDY DATE/TIME: 09/20/2016 17:30 UNIT: [facility] ROOM: [facility] STUDY DESCRIPTION: CR Abdomen Single AP View Attending Physician: Erna Luke M.D. Ordering Physician: Jeffry Starr M.D. Primary Care Physician: Primary Care Physician No MEDICAL IMAGING REPORT This report is preliminary unless electronic signature is present EXAM Single view of the abdomen dated 09/20/2016 at 1730 hours COMPARISON Single view abdomen dated 09/16/2016 at 1325 hours. HISTORY Dobbhoff tube placement. FINDINGS Single view of the abdomen was obtained. Dobbhoff tube has been repositioned with the tip in the region of the distal body/antrum of the stomach. Adequate. Nonspecific bowel gas pattern is seen. Endotracheal tube, right IJ approach catheter with the tip in the SVC all seen. There is also another tube noted in the left paramidline aspect of the spine. It is unclear if it is intrinsic or extrinsic to the patient. It is probably extrinsic. There is S-shaped scoliosis of the thoracolumbar spine. Dictated by... Bridgette Stahl M.D. THIS IS AN ELECTRONICALLY VERIFIED REPORT Bridgette Stahl M.D. at 09/22/2016 1:42 PM CPR/mjs TD: 09/21/2016 11:45 JOB #: [id number] [facility] A Service of [facility] RADIOLOGY TEXT RESULTS PATIENT: MELANIA MACDONALD LOCATION: [facility]2-10 : [birth year] UNIT #: [id number] AGE: [address]: Erna Luke MD SEX: M ORDER DR: MEDICAL IMAGING REPORT Page 1 of 1 COPY
--- NOTE | ~2016-09-16 | CR7 ---
[facility] A Service of [facility] & [facility] RADIOLOGY TEXT RESULTS PATIENT: MELANIA MACDONALD LOCATION: [place] [id number] : [birth year] UNIT #: [id number] AGE: [address]: Erna Luke MD SEX: M ORDER DR: [id number] [facility] [address] [place], [place] [address] [id number] MR#: [id number] Acc #: [id number] NAME: MELANIA MACDONALD : 1990 SEX: M STUDY DATE/TIME: 09/16/2016 13:35 UNIT: [facility] ROOM: [facility] STUDY DESCRIPTION: CR Abdomen Single AP View Attending Physician: Erna Luke M.D. Ordering Physician: Hamilton Mayer M.D. Primary Care Physician: No Primary Care Physician MEDICAL IMAGING REPORT This report is preliminary unless electronic signature is present EXAM Portable abdomen, 09/16/16 HISTORY Dobbhoff tube placement FINDINGS The flexible feeding tube is coiled within the stomach. Dictated by... Darius Matthews M.D. THIS IS AN ELECTRONICALLY VERIFIED REPORT Darius Matthews M.D. at 09/18/2016 2:19 PM Victoriano TD: 09/16/2016 19:13 JOB #: [id number] MEDICAL IMAGING REPORT Page 1 of 1 COPY
--- NOTE | ~2016-09-16 | FU ---
[facility] Nutrition Therapy DATE: 09/30/16 Patient: MELANIA MACDONALD Physician: DELFINO Address: [address] [place] [address] ROAD Room/Bed: [address], Zip: [place] [address] Admit Date: 09/16/16 Date of : [birth year] Height: 5 9 Weight: 136 62 NUTRITION MONITORING/FOLLOW-UP: Reason: PT SEEN FOR FOLLOW-UP/ENTERAL NUTRITION DX: RESPIRATORY ARREST, UNRESPONSIVE Anthropometrics: 5'9", WT: 136# (62 KG), BMI: 20.1 -WEIGHTS HAVE BEEN STABLE SINCE ADMIT Labs: ALB: 3.2, AST: 47, ALT: 92, PHOS: 2.3 (09/19/16), AMYLASE: 88 (09/26/16), LIPASE: 78 (09/26/16) Meds: VERSED, NACL, KCL, NOVOLOG, PROTONIX I&O's: 3790/2755 Skin: BILATERAL ANKLES TRACE EDEMA; BILATERAL FEET TRACE EDEMA Estimated Nutrition Needs: [id number] KCAL 56-68 G PRO Assessment: CHART REVIEWED AND EVENTS NOTED. PT SEEN FOR ENTERAL NUTRITION SUPPORT FOLLOW-UP. PT CONTINUES TO BE INTUBATED AND SEDATED RECEIVING EN OF JEVITY 1.5 @ 50 ML/HR. PER RN AND CHART, PT TOLERATING EN, NOTING NO ISSUES. PER PUMP HISTORY, PT RECEIVING ~95% ESTIMATED NEEDS X 24 HOURS. NO FAMILY IN ROOM AT THIS TIME. RD TO CONTINUE TO FOLLOW. -TUBE FEEDS PROVIDE 1800 KCAL, 77 G PRO, 912 ML FREE H20 Dx: INADEQUATE ORAL INTAKE R/T DX, CURRENT CONDITION AEB EN IN PLACE.-ACTIVE Intervention: 1. EN Monitoring, Evaluation and Goals: GOALS MET 1. ENTERAL NUTRITION; PROVIDE ~80-100% ESTIMATED NUTRIENT NEEDS 2. ORAL INTAKE; ADVANCE DIET PER AIRLINE COUNTER AGENT + TOLERATE W/NO C/O N/V/D (PO>50%) 3. LABS; WNL 4. GI; PROMOTE REGULAR GI FUNCTION MONITOR: -TF RATE/RESIDUALS -WEIGHTS -LABS -EXTUBATION [facility] Nutrition Therapy DATE: 09/30/16 Patient: MELANIA MACDONALD Physician: DELFINO Address: [address] [place] [address] ROAD Room/Bed: [address], Zip: [place] [address] Admit Date: 09/16/16 Date of : [birth year] Height: 5 9 Weight: 136 62 Recommendations: 1. CONTINUE CURRENT ENTERAL NUTRITION SUPPORT OF JEVITY 1.5 @ 50 ML/HR X 24 HOURS -ADEQUATE FOR PT'S CURRENT ESTIMATED NEEDS CONTINUE FREE H20 FLUSHES PER MD 2. ONCE PT EXTUBATED, ADVANCE DIET PER AIRLINE COUNTER AGENT + REGULAR RD WILL F/U PER PROTOCOL PT IS MODERATELY COMPROMISED Respectfully, SHAY KERNS MS, RD, LD [facility] cc: client file
[~2016-09-16 03:43] MED LIST: ALBUTEROL17 GM; BACTRIM DS TABL1 TA2 PO; BACTROBAN22 GM TP
[2016-09-16 04:01] LABS: ARTERIAL BLD GAS O2 SATURATION 97.6 % (90.0-100.0); ARTERIAL BLOOD GAS CARBOXY HB 1.4 %sat (0.0-9.0); ARTERIAL BLOOD GAS HCO3 14.8 mmol/L; ARTERIAL BLOOD GAS MET HB 0.1 %sat (0.0-2.0)
[2016-09-16 04:02] LABS: ARTERIAL BLOOD GAS ART SITE LEFT BRACHIAL; ARTERIAL DRAW? YES
[2016-09-16 04:03] LABS: ARTERIAL BLOOD GAS DELIVERY VENT
[2016-09-16 04:26] LABS: BASOPHIL# 0.2 X10e3 (0-0.3); BASOPHIL% 0.9 % (0-2.5); EOSINOPHIL# 1.9 X10e3 (0-0.7); EOSINOPHIL% 8.2 % (0.0-7.0); HEMATOCRIT 47.8 % (38.0-50.0); HEMOGLOBIN 15.9 gm/dL (13.0-16.0); LYMPHOCYTE# 9.9 X10e3 (1.0-3.5); LYMPHOCYTE% 42.7 % (17.0-45.0); MEAN CELL VOLUME 87.3 FL (83-96); MEAN CORPUSCULAR HGB CONC 33.2 g/dL (30-36); MEAN PLATELET VOLUME 8.8 FL (6.5-11.5); MONOCYTE# 1.5 X10e3 (0-1.0); MONOCYTE% 6.4 % (3.0-12.0); NEUTROPHIL# 9.8 X10e3 (1.5-7.1); NEUTROPHIL% 41.8 % (40-75); PLATELET COUNT 525 X10e3 (140-420); RED BLOOD COUNT 5.47 X10e (3.90-5.60); RED CELL DISTRIBUTION WIDTH 13.7 % (11.0-15.5); WHITE BLOOD COUNT 23.3 X10e3 (4.0-10.5)
[2016-09-16 04:29] LABS: DIFF IND YES
[2016-09-16 04:32] LABS: URINE SOURCE CATH
[2016-09-16 04:33] LABS: POC - CKMB 2.4 ng/mL (0.0-7.9); POC - TROPONIN <0.05 ng/mL (<=0.05)
[2016-09-16 04:33] LABS: INR 1.1; PROTHROMBIN TIME (PATIENT) 12.6 SECONDS (9.5-12.4)
[2016-09-16 04:36] LABS: URINE APPEARANCE CLEAR; URINE BILIRUBIN NEG (NEG); URINE BLOOD 1+ (NEG); URINE COLOR YELLOW; URINE GLUCOSE 300 MG/DL (NORM); URINE KETONE NEG (NEG); URINE LEUKOCYTE ESTERASE NEG (NEG); URINE NITRATE NEG (NEG); URINE PH 5.5 (5-8); URINE PROTEIN 2+ (NEG); URINE SPECIFIC GRAVITY 1.025 (1.003-1.035); URINE UROBILINOGEN 0.2 MG/DL (NORM)
[2016-09-16 04:41] LABS: PARTIAL THROMBOPLASTIN TIME 26.5 SECONDS (25.6-38.1)
[2016-09-16 04:41] LABS: MICRO INDICATED? YES
[2016-09-16 04:42] LABS: ALBUMIN SERUM 4.3 g/dL (3.5-5.0); ALKALINE PHOSPHATASE 76 U/L (32-92); ALT (SGPT) 32 U/L (10-40); AST (SGOT) 38 U/L (10-42); BILIRUBIN,TOTAL 0.4 mg/dL (0.2-2.0); BLOOD UREA NITROGEN 20 mg/dL (9-23); BUN/CREATININE RATIO 14.28; CALCIUM SERUM 8.5 mg/dL (8.4-10.2); CARBON DIOXIDE 19 mmol/L (22-31); CHLORIDE 100 mmol/L (100-111); CREATININE SERUM 1.4 mg/dL (0.6-1.4); GLOM FILT RATE Estimated 69.4 mL/min (>60); GLUCOSE FASTING 294 mg/dL (70-110); POTASSIUM 3.3 mmol/L (3.5-5.1); PROTEIN TOTAL SERUM 7.4 g/dL (6.0-8.3); SODIUM 136 mmol/L (135-145)
[2016-09-16 04:44] LABS: CULTURE INDICATED? YES; URINE AMORPHOUS SEDIMENT AMORP URATES; URINE BACTERIA NEG (NEG); URINE MUCUS PRESENT; URINE RBC 25-50 /[HPF] (0-2); URINE SQUAMOUS EPITHELIAL CELL FEW /[HPF]
[2016-09-16 04:45] LABS: BILIRUBIN, DIRECT <0.1 mg/dL (0.0-0.2); BILIRUBIN,INDIRECT 0.3 mg/dL (0.0-0.9)
[2016-09-16 04:46] LABS: AMPHETAMINE NEG (NEG); BARBITURATES NEG (NEG); BENZODIAZEPINES NEG (NEG); COCAINE NEG (NEG); MARIJUANA POS (NEG); OPIATES NEG (NEG); TRICYCLIC ANTIDEPRESSANTS NEG (NEG); U METHADONE NEG (NEG)
[2016-09-16 04:55] LABS: PLATELET ESTIMATE INCREASED (NORMAL); TOXIC GRANULATION SL
[2016-09-16 04:56] LABS: DIFFERENTIAL COMMENT Y
[2016-09-16 07:19] LABS: ARTERIAL BLD GAS O2 SATURATION 98.6 % (90.0-100.0); ARTERIAL BLOOD GAS HCO3 24.1 mmol/L; ARTERIAL BLOOD GAS MET HB 1.3 %sat (0.0-2.0); ARTERIAL BLOOD GAS PCO2 48.1 mmHg (35.0-45.0); ARTERIAL BLOOD GAS pH 7.308 (7.350-7.450)
[2016-09-16 07:23] LABS: ARTERIAL BLOOD GAS ALLEN TEST NORMAL; ARTERIAL BLOOD GAS ART SITE RIGHT RADIAL; ARTERIAL BLOOD GAS VENT MODE A/C; ARTERIAL DRAW? YES
[2016-09-16 14:16] LABS: INFLUENZA A NEG (NEG)
[2016-09-16 14:17] LABS: INFLUENZA B NEG (NEG)
[2016-09-17 05:27] LABS: ARTERIAL BLOOD GAS CARBOXY HB 0.2 %sat (0.0-9.0); ARTERIAL BLOOD GAS HCO3 21.5 mmol/L; ARTERIAL BLOOD GAS MET HB 0.9 %sat (0.0-2.0); ARTERIAL BLOOD GAS PCO2 37.5 mmHg (35.0-45.0); ARTERIAL BLOOD GAS pH 7.365 (7.350-7.450)
[2016-09-17 05:30] LABS: ARTERIAL BLOOD GAS ALLEN TEST NORMAL; ARTERIAL BLOOD GAS ART SITE LEFT RADIAL; ARTERIAL BLOOD GAS VENT MODE PRVC; ARTERIAL DRAW? YES
[2016-09-17 05:42] LABS: BASOPHIL% 0.1 % (0-2.5); HEMATOCRIT 42.1 % (38.0-50.0); LYMPHOCYTE# 1.3 X10e3 (1.0-3.5); LYMPHOCYTE% 6.5 % (17.0-45.0); MEAN CELL VOLUME 88.4 FL (83-96); MEAN CORPUSCULAR HEMOGLOBIN 28.1 PG (28-34); MEAN CORPUSCULAR HGB CONC 31.8 g/dL (30-36); MEAN PLATELET VOLUME 8.9 FL (6.5-11.5); MONOCYTE# 0.8 X10e3 (0-1.0); NEUTROPHIL# 18.3 X10e3 (1.5-7.1); NEUTROPHIL% 89.4 % (40-75); PLATELET COUNT 321 X10e3 (140-420); RED BLOOD COUNT 4.76 X10e (3.90-5.60); RED CELL DISTRIBUTION WIDTH 14.3 % (11.0-15.5); WHITE BLOOD COUNT 20.5 X10e3 (4.0-10.5)
[2016-09-17 05:44] LABS: HEMOGLOBIN 13.4 gm/dL (13.0-16.0)
[2016-09-17 05:45] LABS: DIFF IND YES
[2016-09-17 06:20] LABS: ALBUMIN SERUM 3.8 g/dL (3.5-5.0); BILIRUBIN,TOTAL 0.5 mg/dL (0.2-2.0); BUN/CREATININE RATIO 12.66; CALCIUM SERUM 8.6 mg/dL (8.4-10.2); CREATININE SERUM 1.5 mg/dL (0.6-1.4); GLOM FILT RATE Estimated 63.8 mL/min (>60); POTASSIUM 4.6 mmol/L (3.5-5.1); PROTEIN TOTAL SERUM 6.5 g/dL (6.0-8.3)
[2016-09-17 06:21] LABS: ANISOCYTOSIS SL; PLATELET ESTIMATE NORMAL (NORMAL)
[2016-09-18 01:13] LABS: HA AB IGM (HEPPAN) Nonreactive (()); HB CORE AB IGM (HEPPAN) Nonreactive (Nonreactive); HB S AG (HEPPAN) Nonreactive (Nonreactive); HEP C AB (HEPPAN) Nonreactive (Nonreactive); HEP C AB SIGNAL TO CUTOFF 0.03 ratio (<1.00)
[2016-09-18 04:47] LABS: ARTERIAL BLD GAS O2 SATURATION 98.2 % (90.0-100.0); ARTERIAL BLOOD GAS HCO3 23.6 mmol/L; ARTERIAL BLOOD GAS PCO2 37.2 mmHg (35.0-45.0); ARTERIAL BLOOD GAS pH 7.411 (7.350-7.450)
[2016-09-18 05:06] LABS: ARTERIAL BLOOD GAS ALLEN TEST NORMAL; ARTERIAL BLOOD GAS ART SITE RIGHT RADIAL; ARTERIAL BLOOD GAS VENT MODE PRVC; ARTERIAL DRAW? YES
[2016-09-18 05:35] LABS: HEMATOCRIT 34.5 % (38.0-50.0); LYMPHOCYTE# 1.2 X10e3 (1.0-3.5); LYMPHOCYTE% 8.9 % (17.0-45.0); MEAN CELL VOLUME 86.6 FL (83-96); MEAN CORPUSCULAR HEMOGLOBIN 28.1 PG (28-34); MEAN CORPUSCULAR HGB CONC 32.4 g/dL (30-36); MEAN PLATELET VOLUME 8.7 FL (6.5-11.5); MONOCYTE# 1.1 X10e3 (0-1.0); MONOCYTE% 8.1 % (3.0-12.0); NEUTROPHIL# 11.5 X10e3 (1.5-7.1); PLATELET COUNT 249 X10e3 (140-420); RED BLOOD COUNT 3.98 X10e (3.90-5.60); RED CELL DISTRIBUTION WIDTH 14.8 % (11.0-15.5); WHITE BLOOD COUNT 13.9 X10e3 (4.0-10.5)
[2016-09-18 05:41] LABS: DIFF IND NO; HEMOGLOBIN 11.2 gm/dL (13.0-16.0)
[2016-09-18 06:21] LABS: CALCIUM SERUM 8.2 mg/dL (8.4-10.2); GLOM FILT RATE Estimated 104.2 mL/min (>60); POTASSIUM 4.5 mmol/L (3.5-5.1)
[2016-09-19 04:34] LABS: ARTERIAL BLD GAS O2 SATURATION 97.1 % (90.0-100.0); ARTERIAL BLOOD GAS CARBOXY HB 0.5 %sat (0.0-9.0); ARTERIAL BLOOD GAS HCO3 27.1 mmol/L; ARTERIAL BLOOD GAS MET HB 1.1 %sat (0.0-2.0); ARTERIAL BLOOD GAS PCO2 44.5 mmHg (35.0-45.0); ARTERIAL BLOOD GAS pH 7.392 (7.350-7.450)
[2016-09-19 04:35] LABS: ARTERIAL BLOOD GAS ART SITE RIGHT BRACHIAL; ARTERIAL BLOOD GAS DELIVERY VENT; ARTERIAL BLOOD GAS VENT MODE PRVC; ARTERIAL DRAW? YES
[2016-09-19 05:45] LABS: HEMATOCRIT 34.1 % (38.0-50.0); LYMPHOCYTE# 1.5 X10e3 (1.0-3.5); LYMPHOCYTE% 11.6 % (17.0-45.0); MEAN CELL VOLUME 88.5 FL (83-96); MEAN CORPUSCULAR HEMOGLOBIN 28.5 PG (28-34); MEAN CORPUSCULAR HGB CONC 32.1 g/dL (30-36); MEAN PLATELET VOLUME 8.7 FL (6.5-11.5); MONOCYTE# 1.6 X10e3 (0-1.0); NEUTROPHIL# 10.1 X10e3 (1.5-7.1); NEUTROPHIL% 76.4 % (40-75); PLATELET COUNT 238 X10e3 (140-420); RED BLOOD COUNT 3.85 X10e (3.90-5.60); RED CELL DISTRIBUTION WIDTH 14.4 % (11.0-15.5); WHITE BLOOD COUNT 13.2 X10e3 (4.0-10.5)
[2016-09-19 05:59] LABS: DIFF IND NO
[2016-09-19 06:16] LABS: BUN/CREATININE RATIO 21.42; CREATININE SERUM 0.7 mg/dL (0.6-1.4); GLOM FILT RATE Estimated 131.2 mL/min (>60); MAGNESIUM 2.3 mg/dL (1.6-3.0); PHOSPHOROUS 2.3 mg/dL (2.5-4.6); POTASSIUM 4.2 mmol/L (3.5-5.1)
[2016-09-19 15:23] LABS: THYROID STIMULATING HORMONE 0.09 uIU/ml (0.34-5.60)
[2016-09-19 15:29] LABS: FREE THYROXIN (T4) 0.65 ng/dL (0.58-1.64)
[2016-09-20 03:43] LABS: ARTERIAL BLD GAS O2 SATURATION 95.2 % (90.0-100.0); ARTERIAL BLOOD GAS CARBOXY HB 0.7 %sat (0.0-9.0); ARTERIAL BLOOD GAS HCO3 28.8 mmol/L; ARTERIAL BLOOD GAS PCO2 44.7 mmHg (35.0-45.0); ARTERIAL BLOOD GAS pH 7.417 (7.350-7.450)
[2016-09-20 03:50] LABS: ARTERIAL BLOOD GAS ALLEN TEST NORMAL; ARTERIAL BLOOD GAS ART SITE RIGHT RADIAL; ARTERIAL BLOOD GAS DELIVERY VENT; ARTERIAL BLOOD GAS VENT MODE PRVC INSP. TIME 1.00; ARTERIAL DRAW? YES
[2016-09-20 05:39] LABS: BASOPHIL% 0.1 % (0-2.5); HEMATOCRIT 33.3 % (38.0-50.0); HEMOGLOBIN 10.9 gm/dL (13.0-16.0); LYMPHOCYTE# 1.7 X10e3 (1.0-3.5); MEAN CELL VOLUME 87.8 FL (83-96); MEAN CORPUSCULAR HEMOGLOBIN 28.7 PG (28-34); MEAN CORPUSCULAR HGB CONC 32.7 g/dL (30-36); MEAN PLATELET VOLUME 8.6 FL (6.5-11.5); MONOCYTE% 10.4 % (3.0-12.0); NEUTROPHIL# 7.1 X10e3 (1.5-7.1); NEUTROPHIL% 72.5 % (40-75); PLATELET COUNT 209 X10e3 (140-420); RED BLOOD COUNT 3.79 X10e (3.90-5.60); RED CELL DISTRIBUTION WIDTH 13.9 % (11.0-15.5); WHITE BLOOD COUNT 9.7 X10e3 (4.0-10.5)
[2016-09-20 05:42] LABS: DIFF IND NO
[2016-09-20 07:05] LABS: BUN/CREATININE RATIO 21.66; CALCIUM SERUM 8.1 mg/dL (8.4-10.2); CREATININE SERUM 0.6 mg/dL (0.6-1.4); GLOM FILT RATE Estimated 139.8 mL/min (>60); POTASSIUM 3.9 mmol/L (3.5-5.1)
[2016-09-21 04:41] LABS: ARTERIAL BLD GAS O2 SATURATION 97.3 % (90.0-100.0); ARTERIAL BLOOD GAS CARBOXY HB 0.2 %sat (0.0-9.0); ARTERIAL BLOOD GAS HCO3 27.3 mmol/L; ARTERIAL BLOOD GAS MET HB 0.7 %sat (0.0-2.0); ARTERIAL BLOOD GAS PCO2 45.9 mmHg (35.0-45.0); ARTERIAL BLOOD GAS PO2 98.6 mmHg (80.0-100); ARTERIAL BLOOD GAS pH 7.383 (7.350-7.450)
[2016-09-21 04:51] LABS: ARTERIAL BLOOD GAS ALLEN TEST NORMAL; ARTERIAL BLOOD GAS ART SITE RIGHT RADIAL; ARTERIAL BLOOD GAS DELIVERY VENT; ARTERIAL BLOOD GAS VENT MODE A/C; ARTERIAL DRAW? YES
[2016-09-21 05:25] LABS: HEMATOCRIT 36.5 % (38.0-50.0); MEAN CELL VOLUME 86.5 FL (83-96); MEAN CORPUSCULAR HEMOGLOBIN 28.6 PG (28-34); MEAN PLATELET VOLUME 8.2 FL (6.5-11.5); RED BLOOD COUNT 4.21 X10e (3.90-5.60); RED CELL DISTRIBUTION WIDTH 13.3 % (11.0-15.5); WHITE BLOOD COUNT 8.9 X10e3 (4.0-10.5)
[2016-09-21 06:21] LABS: CALCIUM SERUM 8.6 mg/dL (8.4-10.2); CREATININE SERUM 0.6 mg/dL (0.6-1.4); GLOM FILT RATE Estimated 139.8 mL/min (>60); POTASSIUM 4.3 mmol/L (3.5-5.1)
[2016-09-22 03:46] LABS: BASOPHIL% 0.1 % (0-2.5); EOSINOPHIL# 0.3 X10e3 (0-0.7); EOSINOPHIL% 2.2 % (0.0-7.0); HEMATOCRIT 37.1 % (38.0-50.0); HEMOGLOBIN 12.2 gm/dL (13.0-16.0); LYMPHOCYTE# 3.6 X10e3 (1.0-3.5); LYMPHOCYTE% 24.1 % (17.0-45.0); MEAN CELL VOLUME 85.7 FL (83-96); MEAN CORPUSCULAR HEMOGLOBIN 28.1 PG (28-34); MEAN CORPUSCULAR HGB CONC 32.8 g/dL (30-36); MONOCYTE# 1.9 X10e3 (0-1.0); MONOCYTE% 12.9 % (3.0-12.0); NEUTROPHIL# 8.9 X10e3 (1.5-7.1); NEUTROPHIL% 60.7 % (40-75); PLATELET COUNT 289 X10e3 (140-420); RED BLOOD COUNT 4.33 X10e (3.90-5.60); RED CELL DISTRIBUTION WIDTH 13.1 % (11.0-15.5)
[2016-09-22 03:50] LABS: DIFF IND NO; WHITE BLOOD COUNT 14.7 X10e3 (4.0-10.5)
[2016-09-22 04:07] LABS: ALBUMIN SERUM 3.3 g/dL (3.5-5.0); BILIRUBIN,TOTAL 0.8 mg/dL (0.2-2.0); BUN/CREATININE RATIO 21.66; CALCIUM SERUM 8.5 mg/dL (8.4-10.2); CREATININE SERUM 0.6 mg/dL (0.6-1.4); GLOM FILT RATE Estimated 139.8 mL/min (>60); POTASSIUM 3.2 mmol/L (3.5-5.1); PROTEIN TOTAL SERUM 6.2 g/dL (6.0-8.3)
[2016-09-22 04:09] LABS: ARTERIAL BLOOD GAS CARBOXY HB 0.2 %sat (0.0-9.0); ARTERIAL BLOOD GAS MET HB 0.7 %sat (0.0-2.0); ARTERIAL BLOOD GAS PCO2 43.3 mmHg (35.0-45.0); ARTERIAL BLOOD GAS pH 7.419 (7.350-7.450)
[2016-09-22 04:15] LABS: PARTIAL THROMBOPLASTIN TIME 25.5 SECONDS (23.5-31.3); PROTHROMBIN TIME (PATIENT) 10.6 SECONDS (9.6-11.5)
[2016-09-22 04:16] LABS: ARTERIAL BLOOD GAS ALLEN TEST NORMAL; ARTERIAL BLOOD GAS ART SITE RIGHT RADIAL; ARTERIAL DRAW? YES
[2016-09-22 04:17] LABS: ARTERIAL BLOOD GAS DELIVERY VENT; ARTERIAL BLOOD GAS VENT MODE A/C
[2016-09-23 04:38] LABS: ARTERIAL BLD GAS O2 SATURATION 98.8 % (90.0-100.0); ARTERIAL BLOOD GAS CARBOXY HB 0.2 %sat (0.0-9.0); ARTERIAL BLOOD GAS HCO3 25.1 mmol/L; ARTERIAL BLOOD GAS MET HB 0.9 %sat (0.0-2.0); ARTERIAL BLOOD GAS PCO2 32.3 mmHg (35.0-45.0); ARTERIAL BLOOD GAS pH 7.498 (7.350-7.450)
[2016-09-23 04:39] LABS: ARTERIAL BLOOD GAS ALLEN TEST NORMAL; ARTERIAL BLOOD GAS ART SITE RIGHT RADIAL; ARTERIAL BLOOD GAS DELIVERY VENT; ARTERIAL BLOOD GAS VENT MODE AC; ARTERIAL DRAW? YES
[2016-09-23 05:39] LABS: BASOPHIL% 0.1 % (0-2.5); EOSINOPHIL# 0.3 X10e3 (0-0.7); EOSINOPHIL% 2.1 % (0.0-7.0); HEMATOCRIT 33.9 % (38.0-50.0); HEMOGLOBIN 11.2 gm/dL (13.0-16.0); LYMPHOCYTE# 2.5 X10e3 (1.0-3.5); LYMPHOCYTE% 20.2 % (17.0-45.0); MEAN CELL VOLUME 85.2 FL (83-96); MEAN CORPUSCULAR HEMOGLOBIN 28.3 PG (28-34); MEAN CORPUSCULAR HGB CONC 33.2 g/dL (30-36); MEAN PLATELET VOLUME 8.2 FL (6.5-11.5); MONOCYTE# 1.4 X10e3 (0-1.0); MONOCYTE% 11.3 % (3.0-12.0); NEUTROPHIL# 8.3 X10e3 (1.5-7.1); NEUTROPHIL% 66.3 % (40-75); PLATELET COUNT 244 X10e3 (140-420); RED BLOOD COUNT 3.97 X10e (3.90-5.60); RED CELL DISTRIBUTION WIDTH 12.9 % (11.0-15.5); WHITE BLOOD COUNT 12.6 X10e3 (4.0-10.5)
[2016-09-23 05:54] LABS: DIFF IND NO
[2016-09-23 06:39] LABS: ALBUMIN SERUM 2.6 g/dL (3.5-5.0); BILIRUBIN,TOTAL 1.1 mg/dL (0.2-2.0); CALCIUM SERUM 8.4 mg/dL (8.4-10.2); CREATININE SERUM 0.5 mg/dL (0.6-1.4); GLOM FILT RATE Estimated 150.7 mL/min (>60); POTASSIUM 3.5 mmol/L (3.5-5.1); PROTEIN TOTAL SERUM 5.3 g/dL (6.0-8.3)
[2016-09-24 04:22] LABS: ARTERIAL BLD GAS O2 SATURATION 97.9 % (90.0-100.0); ARTERIAL BLOOD GAS CARBOXY HB 0.2 %sat (0.0-9.0); ARTERIAL BLOOD GAS PCO2 43.5 mmHg (35.0-45.0); ARTERIAL BLOOD GAS pH 7.417 (7.350-7.450)
[2016-09-24 04:25] LABS: ARTERIAL BLOOD GAS ALLEN TEST NORMAL; ARTERIAL BLOOD GAS ART SITE RIGHT RADIAL; ARTERIAL BLOOD GAS DELIVERY VENT; ARTERIAL BLOOD GAS VENT MODE AC; ARTERIAL DRAW? YES
[2016-09-24 06:14] LABS: BASOPHIL% 0.1 % (0-2.5); EOSINOPHIL# 0.5 X10e3 (0-0.7); EOSINOPHIL% 3.5 % (0.0-7.0); HEMOGLOBIN 10.8 gm/dL (13.0-16.0); LYMPHOCYTE# 2.3 X10e3 (1.0-3.5); LYMPHOCYTE% 17.5 % (17.0-45.0); MEAN CELL VOLUME 85.1 FL (83-96); MEAN CORPUSCULAR HEMOGLOBIN 28.6 PG (28-34); MEAN CORPUSCULAR HGB CONC 33.7 g/dL (30-36); MEAN PLATELET VOLUME 8.4 FL (6.5-11.5); MONOCYTE# 1.2 X10e3 (0-1.0); MONOCYTE% 9.4 % (3.0-12.0); NEUTROPHIL# 9.2 X10e3 (1.5-7.1); NEUTROPHIL% 69.5 % (40-75); PLATELET COUNT 240 X10e3 (140-420); RED BLOOD COUNT 3.76 X10e (3.90-5.60); RED CELL DISTRIBUTION WIDTH 12.9 % (11.0-15.5); WHITE BLOOD COUNT 13.2 X10e3 (4.0-10.5)
[2016-09-24 06:28] LABS: ALBUMIN SERUM 2.7 g/dL (3.5-5.0); BILIRUBIN,TOTAL 0.6 mg/dL (0.2-2.0); CALCIUM SERUM 8.1 mg/dL (8.4-10.2); CREATININE SERUM 0.5 mg/dL (0.6-1.4); GLOM FILT RATE Estimated 150.7 mL/min (>60); POTASSIUM 3.1 mmol/L (3.5-5.1); PROTEIN TOTAL SERUM 5.6 g/dL (6.0-8.3)
[2016-09-24 06:31] LABS: DIFF IND NO
[2016-09-25 04:40] LABS: ARTERIAL BLD GAS O2 SATURATION 99.8 % (90.0-100.0); ARTERIAL BLOOD GAS ALLEN TEST NORMAL; ARTERIAL BLOOD GAS CARBOXY HB 0.2 %sat (0.0-9.0); ARTERIAL BLOOD GAS HCO3 28.5 mmol/L; ARTERIAL BLOOD GAS MET HB 0.7 %sat (0.0-2.0); ARTERIAL BLOOD GAS PCO2 38.3 mmHg (35.0-45.0); ARTERIAL DRAW? YES
[2016-09-25 04:41] LABS: ARTERIAL BLOOD GAS ART SITE LEFT RADIAL; ARTERIAL BLOOD GAS DELIVERY VENT; ARTERIAL BLOOD GAS VENT MODE AC
[2016-09-25 05:39] LABS: BASOPHIL% 0.2 % (0-2.5); EOSINOPHIL# 0.7 X10e3 (0-0.7); EOSINOPHIL% 3.8 % (0.0-7.0); HEMATOCRIT 35.1 % (38.0-50.0); HEMOGLOBIN 11.6 gm/dL (13.0-16.0); LYMPHOCYTE% 10.8 % (17.0-45.0); MEAN CELL VOLUME 86.1 FL (83-96); MEAN CORPUSCULAR HEMOGLOBIN 28.4 PG (28-34); MEAN PLATELET VOLUME 8.3 FL (6.5-11.5); MONOCYTE# 2.3 X10e3 (0-1.0); MONOCYTE% 12.4 % (3.0-12.0); NEUTROPHIL# 13.7 X10e3 (1.5-7.1); NEUTROPHIL% 72.8 % (40-75); RED BLOOD COUNT 4.08 X10e (3.90-5.60); RED CELL DISTRIBUTION WIDTH 13.5 % (11.0-15.5); WHITE BLOOD COUNT 18.8 X10e3 (4.0-10.5)
[2016-09-25 05:44] LABS: DIFF IND YES; PLATELET COUNT 372 X10e3 (140-420)
[2016-09-25 06:07] LABS: ALBUMIN SERUM 2.7 g/dL (3.5-5.0); BILIRUBIN,TOTAL 0.4 mg/dL (0.2-2.0); CALCIUM SERUM 8.3 mg/dL (8.4-10.2); CREATININE SERUM 0.5 mg/dL (0.6-1.4); GLOM FILT RATE Estimated 150.7 mL/min (>60); MAGNESIUM 1.9 mg/dL (1.6-3.0); POTASSIUM 3.5 mmol/L (3.5-5.1); PROTEIN TOTAL SERUM 6.1 g/dL (6.0-8.3)
[2016-09-25 06:22] LABS: PLATELET ESTIMATE NORMAL (NORMAL)
[2016-09-25 06:23] LABS: ANISOCYTOSIS SL
[2016-09-25 12:13] LABS: AMYLASE 116 U/L (0-46); LIPASE 99 U/L (22-51)
[2016-09-25 13:11] LABS: ARTERIAL BLD GAS O2 SATURATION 98.7 % (90.0-100.0); ARTERIAL BLOOD GAS CARBOXY HB 0.3 %sat (0.0-9.0); ARTERIAL BLOOD GAS HCO3 27.2 mmol/L; ARTERIAL BLOOD GAS MET HB 0.9 %sat (0.0-2.0); ARTERIAL BLOOD GAS pH 7.486 (7.350-7.450)
[2016-09-25 13:15] LABS: ARTERIAL BLOOD GAS ALLEN TEST NORMAL; ARTERIAL BLOOD GAS ART SITE RIGHT RADIAL; ARTERIAL BLOOD GAS DELIVERY VENT; ARTERIAL BLOOD GAS VENT MODE CPAP; ARTERIAL DRAW? YES
[2016-09-25 18:52] LABS: URINE APPEARANCE CLEAR; URINE BILIRUBIN NEG (NEG); URINE BLOOD 3+ (NEG); URINE COLOR YELLOW; URINE GLUCOSE NEG (NEG); URINE KETONE 2+ (NEG); URINE LEUKOCYTE ESTERASE NEG (NEG); URINE NITRATE NEG (NEG); URINE PH 7.5 (5-8); URINE PROTEIN NEG (NEG); URINE SPECIFIC GRAVITY 1.024 (1.003-1.035)
[2016-09-25 18:53] LABS: U HYALINE CASTS AUWI 0-2 /[LPF]; URBCS1 AUWI 200-300 /[HPF] (0-2); URINE BACTERIA AUWI NEG (NEGATIVE); URINE SQUAMOUS EPITHELIAL CELL NONE SEEN /[HPF]; UWBCS1 AUWI 0-2 (0-5)
[2016-09-25 18:54] LABS: CULTURE INDICATED? NO
[2016-09-26 05:15] LABS: ARTERIAL BLD GAS O2 SATURATION 98.4 % (90.0-100.0); ARTERIAL BLOOD GAS CARBOXY HB 0.4 %sat (0.0-9.0); ARTERIAL BLOOD GAS HCO3 27.3 mmol/L; ARTERIAL BLOOD GAS pH 7.442 (7.350-7.450)
[2016-09-26 05:45] LABS: BASOPHIL# 0.1 X10e3 (0-0.3); BASOPHIL% 0.5 % (0-2.5); EOSINOPHIL# 1.1 X10e3 (0-0.7); EOSINOPHIL% 6.9 % (0.0-7.0); HEMATOCRIT 34.9 % (38.0-50.0); HEMOGLOBIN 11.3 gm/dL (13.0-16.0); LYMPHOCYTE% 12.5 % (17.0-45.0); MEAN CELL VOLUME 87.2 FL (83-96); MEAN CORPUSCULAR HEMOGLOBIN 28.3 PG (28-34); MEAN CORPUSCULAR HGB CONC 32.4 g/dL (30-36); MEAN PLATELET VOLUME 7.8 FL (6.5-11.5); MONOCYTE% 12.6 % (3.0-12.0); NEUTROPHIL# 10.6 X10e3 (1.5-7.1); NEUTROPHIL% 67.5 % (40-75); PLATELET COUNT 340 X10e3 (140-420); RED CELL DISTRIBUTION WIDTH 13.5 % (11.0-15.5); WHITE BLOOD COUNT 15.7 X10e3 (4.0-10.5)
[2016-09-26 06:00] LABS: DIFF IND NO
[2016-09-26 06:01] LABS: ARTERIAL BLOOD GAS ALLEN TEST NORMAL; ARTERIAL BLOOD GAS ART SITE LEFT RADIAL; ARTERIAL BLOOD GAS DELIVERY VENT; ARTERIAL BLOOD GAS VENT MODE AC; ARTERIAL DRAW? YES
[2016-09-26 06:31] LABS: ALBUMIN SERUM 2.8 g/dL (3.5-5.0); BILIRUBIN,TOTAL 0.6 mg/dL (0.2-2.0); CALCIUM SERUM 8.5 mg/dL (8.4-10.2); CREATININE SERUM 0.6 mg/dL (0.6-1.4); GLOM FILT RATE Estimated 139.8 mL/min (>60); MAGNESIUM 1.8 mg/dL (1.6-3.0); POTASSIUM 3.7 mmol/L (3.5-5.1); PROTEIN TOTAL SERUM 6.3 g/dL (6.0-8.3)
[2016-09-27 04:56] LABS: ARTERIAL BLD GAS O2 SATURATION 97.9 % (90.0-100.0); ARTERIAL BLOOD GAS CARBOXY HB 0.3 %sat (0.0-9.0); ARTERIAL BLOOD GAS HCO3 27.6 mmol/L; ARTERIAL BLOOD GAS MET HB 0.8 %sat (0.0-2.0); ARTERIAL BLOOD GAS PCO2 39.4 mmHg (35.0-45.0); ARTERIAL BLOOD GAS pH 7.454 (7.350-7.450)
[2016-09-27 05:06] LABS: ARTERIAL BLOOD GAS ALLEN TEST NORMAL; ARTERIAL BLOOD GAS ART SITE LEFT RADIAL; ARTERIAL BLOOD GAS DELIVERY VENT; ARTERIAL BLOOD GAS VENT MODE AC; ARTERIAL DRAW? YES
[2016-09-27 06:01] LABS: BASOPHIL% 0.4 % (0-2.5); EOSINOPHIL% 8.1 % (0.0-7.0); HEMATOCRIT 35.4 % (38.0-50.0); HEMOGLOBIN 11.5 gm/dL (13.0-16.0); LYMPHOCYTE# 1.7 X10e3 (1.0-3.5); LYMPHOCYTE% 13.4 % (17.0-45.0); MEAN CELL VOLUME 86.9 FL (83-96); MEAN CORPUSCULAR HEMOGLOBIN 28.2 PG (28-34); MEAN CORPUSCULAR HGB CONC 32.5 g/dL (30-36); MONOCYTE# 1.2 X10e3 (0-1.0); MONOCYTE% 9.9 % (3.0-12.0); NEUTROPHIL# 8.6 X10e3 (1.5-7.1); NEUTROPHIL% 68.2 % (40-75); PLATELET COUNT 381 X10e3 (140-420); RED BLOOD COUNT 4.07 X10e (3.90-5.60); RED CELL DISTRIBUTION WIDTH 13.4 % (11.0-15.5); WHITE BLOOD COUNT 12.6 X10e3 (4.0-10.5)
[2016-09-27 06:04] LABS: DIFF IND NO
[2016-09-27 06:41] LABS: ALBUMIN SERUM 2.9 g/dL (3.5-5.0); BILIRUBIN,TOTAL 0.6 mg/dL (0.2-2.0); BUN/CREATININE RATIO 18.33; CALCIUM SERUM 8.8 mg/dL (8.4-10.2); CREATININE SERUM 0.6 mg/dL (0.6-1.4); GLOM FILT RATE Estimated 139.8 mL/min (>60); MAGNESIUM 1.9 mg/dL (1.6-3.0); POTASSIUM 3.8 mmol/L (3.5-5.1); PROTEIN TOTAL SERUM 5.9 g/dL (6.0-8.3)
[2016-09-27 12:06] LABS: ARTERIAL BLD GAS O2 SATURATION 98.4 % (90.0-100.0); ARTERIAL BLOOD GAS CARBOXY HB 0.3 %sat (0.0-9.0); ARTERIAL BLOOD GAS HCO3 27.8 mmol/L; ARTERIAL BLOOD GAS MET HB 1.1 %sat (0.0-2.0); ARTERIAL BLOOD GAS PCO2 38.1 mmHg (35.0-45.0); ARTERIAL BLOOD GAS pH 7.471 (7.350-7.450)
[2016-09-27 12:07] LABS: ARTERIAL BLOOD GAS ART SITE RIGHT RADIAL; ARTERIAL BLOOD GAS DELIVERY VENT; ARTERIAL BLOOD GAS VENT MODE CPAP; ARTERIAL DRAW? YES
[2016-09-28 04:52] LABS: ARTERIAL BLD GAS O2 SATURATION 98.4 % (90.0-100.0); ARTERIAL BLOOD GAS CARBOXY HB 0.4 %sat (0.0-9.0); ARTERIAL BLOOD GAS HCO3 25.2 mmol/L; ARTERIAL BLOOD GAS PCO2 35.3 mmHg (35.0-45.0); ARTERIAL BLOOD GAS pH 7.461 (7.350-7.450)
[2016-09-28 04:54] LABS: BASOPHIL# 0.1 X10e3 (0-0.3); BASOPHIL% 0.8 % (0-2.5); EOSINOPHIL# 0.7 X10e3 (0-0.7); EOSINOPHIL% 5.5 % (0.0-7.0); HEMATOCRIT 34.5 % (38.0-50.0); HEMOGLOBIN 11.6 gm/dL (13.0-16.0); LYMPHOCYTE# 1.8 X10e3 (1.0-3.5); LYMPHOCYTE% 13.5 % (17.0-45.0); MEAN CELL VOLUME 86.3 FL (83-96); MEAN CORPUSCULAR HEMOGLOBIN 28.9 PG (28-34); MEAN CORPUSCULAR HGB CONC 33.5 g/dL (30-36); MEAN PLATELET VOLUME 7.7 FL (6.5-11.5); MONOCYTE# 1.4 X10e3 (0-1.0); MONOCYTE% 10.3 % (3.0-12.0); NEUTROPHIL# 9.4 X10e3 (1.5-7.1); NEUTROPHIL% 69.9 % (40-75); PLATELET COUNT 401 X10e3 (140-420); RED CELL DISTRIBUTION WIDTH 13.5 % (11.0-15.5); WHITE BLOOD COUNT 13.5 X10e3 (4.0-10.5)
[2016-09-28 04:58] LABS: DIFF IND NO
[2016-09-28 05:08] LABS: ARTERIAL BLOOD GAS ALLEN TEST NORMAL; ARTERIAL BLOOD GAS ART SITE RIGHT RADIAL; ARTERIAL BLOOD GAS VENT MODE AC; ARTERIAL DRAW? YES
[2016-09-28 05:33] LABS: BILIRUBIN,TOTAL 0.8 mg/dL (0.2-2.0); CALCIUM SERUM 8.7 mg/dL (8.4-10.2); CREATININE SERUM 0.5 mg/dL (0.6-1.4); GLOM FILT RATE Estimated 150.7 mL/min (>60); MAGNESIUM 1.8 mg/dL (1.6-3.0); POTASSIUM 3.1 mmol/L (3.5-5.1); PROTEIN TOTAL SERUM 6.5 g/dL (6.0-8.3)
[2016-09-29 03:23] LABS: BASOPHIL# 0.1 X10e3 (0-0.3); BASOPHIL% 0.6 % (0-2.5); DIFF IND YES; EOSINOPHIL# 0.4 X10e3 (0-0.7); EOSINOPHIL% 2.4 % (0.0-7.0); HEMATOCRIT 34.6 % (38.0-50.0); HEMOGLOBIN 11.6 gm/dL (13.0-16.0); MEAN CELL VOLUME 85.2 FL (83-96); MEAN CORPUSCULAR HEMOGLOBIN 28.6 PG (28-34); MEAN CORPUSCULAR HGB CONC 33.5 g/dL (30-36); MEAN PLATELET VOLUME 7.2 FL (6.5-11.5); MONOCYTE# 1.6 X10e3 (0-1.0); MONOCYTE% 10.5 % (3.0-12.0); NEUTROPHIL# 11.5 X10e3 (1.5-7.1); NEUTROPHIL% 73.5 % (40-75); PLATELET COUNT 453 X10e3 (140-420); RED BLOOD COUNT 4.06 X10e (3.90-5.60); RED CELL DISTRIBUTION WIDTH 13.3 % (11.0-15.5); WHITE BLOOD COUNT 15.6 X10e3 (4.0-10.5)
[2016-09-29 03:44] LABS: CALCIUM SERUM 8.6 mg/dL (8.4-10.2); CREATININE SERUM 0.5 mg/dL (0.6-1.4); GLOM FILT RATE Estimated 150.7 mL/min (>60); MAGNESIUM 1.9 mg/dL (1.6-3.0); POTASSIUM 3.1 mmol/L (3.5-5.1)
[2016-09-29 04:23] LABS: PLATELET ESTIMATE INCREASED (NORMAL)
[2016-09-29 04:24] LABS: ANISOCYTOSIS SL
[2016-09-29 04:49] LABS: ARTERIAL BLD GAS O2 SATURATION 98.5 % (90.0-100.0); ARTERIAL BLOOD GAS CARBOXY HB 0.3 %sat (0.0-9.0); ARTERIAL BLOOD GAS HCO3 27.7 mmol/L; ARTERIAL BLOOD GAS MET HB 0.8 %sat (0.0-2.0); ARTERIAL BLOOD GAS PCO2 41.2 mmHg (35.0-45.0); ARTERIAL BLOOD GAS pH 7.435 (7.350-7.450)
[2016-09-29 05:17] LABS: ARTERIAL BLOOD GAS ALLEN TEST NORMAL; ARTERIAL BLOOD GAS ART SITE RIGHT RADIAL; ARTERIAL BLOOD GAS VENT MODE AC; ARTERIAL DRAW? YES
[2016-09-30 04:23] LABS: ARTERIAL BLD GAS O2 SATURATION 98.3 % (90.0-100.0); ARTERIAL BLOOD GAS CARBOXY HB 0.3 %sat (0.0-9.0); ARTERIAL BLOOD GAS HCO3 27.1 mmol/L; ARTERIAL BLOOD GAS MET HB 0.7 %sat (0.0-2.0); ARTERIAL BLOOD GAS PCO2 39.2 mmHg (35.0-45.0); ARTERIAL BLOOD GAS pH 7.448 (7.350-7.450)
[2016-09-30 04:59] LABS: BASOPHIL# 0.1 X10e3 (0-0.3); BASOPHIL% 0.8 % (0-2.5); EOSINOPHIL# 0.7 X10e3 (0-0.7); EOSINOPHIL% 4.1 % (0.0-7.0); HEMATOCRIT 36.4 % (38.0-50.0); HEMOGLOBIN 12.1 gm/dL (13.0-16.0); LYMPHOCYTE# 3.1 X10e3 (1.0-3.5); LYMPHOCYTE% 18.6 % (17.0-45.0); MEAN CELL VOLUME 86.4 FL (83-96); MEAN CORPUSCULAR HEMOGLOBIN 28.7 PG (28-34); MEAN CORPUSCULAR HGB CONC 33.2 g/dL (30-36); MEAN PLATELET VOLUME 7.9 FL (6.5-11.5); MONOCYTE# 1.5 X10e3 (0-1.0); MONOCYTE% 9.3 % (3.0-12.0); NEUTROPHIL% 67.2 % (40-75); PLATELET COUNT 477 X10e3 (140-420); RED BLOOD COUNT 4.21 X10e (3.90-5.60); RED CELL DISTRIBUTION WIDTH 13.2 % (11.0-15.5); WHITE BLOOD COUNT 16.4 X10e3 (4.0-10.5)
[2016-09-30 05:00] LABS: DIFF IND NO
[2016-09-30 05:03] LABS: ARTERIAL BLOOD GAS ALLEN TEST NORMAL; ARTERIAL BLOOD GAS ART SITE LEFT RADIAL; ARTERIAL BLOOD GAS DELIVERY VENT; ARTERIAL BLOOD GAS VENT MODE AC; ARTERIAL DRAW? YES
[2016-09-30 05:10] LABS: ALBUMIN SERUM 3.2 g/dL (3.5-5.0); BILIRUBIN,TOTAL 0.3 mg/dL (0.2-2.0); CALCIUM SERUM 8.9 mg/dL (8.4-10.2); CREATININE SERUM 0.6 mg/dL (0.6-1.4); GLOM FILT RATE Estimated 139.8 mL/min (>60); MAGNESIUM 1.9 mg/dL (1.6-3.0); POTASSIUM 3.7 mmol/L (3.5-5.1); PROTEIN TOTAL SERUM 6.8 g/dL (6.0-8.3)
[2016-10-01 03:31] LABS: BASOPHIL# 0.1 X10e3 (0-0.3); EOSINOPHIL# 0.5 X10e3 (0-0.7); EOSINOPHIL% 3.2 % (0.0-7.0); HEMATOCRIT 35.9 % (38.0-50.0); HEMOGLOBIN 11.7 gm/dL (13.0-16.0); LYMPHOCYTE# 2.2 X10e3 (1.0-3.5); LYMPHOCYTE% 15.4 % (17.0-45.0); MEAN CELL VOLUME 86.4 FL (83-96); MEAN CORPUSCULAR HEMOGLOBIN 28.2 PG (28-34); MEAN CORPUSCULAR HGB CONC 32.7 g/dL (30-36); MEAN PLATELET VOLUME 7.7 FL (6.5-11.5); MONOCYTE# 1.4 X10e3 (0-1.0); MONOCYTE% 9.9 % (3.0-12.0); NEUTROPHIL# 10.1 X10e3 (1.5-7.1); NEUTROPHIL% 70.5 % (40-75); PLATELET COUNT 468 X10e3 (140-420); RED BLOOD COUNT 4.16 X10e (3.90-5.60); WHITE BLOOD COUNT 14.3 X10e3 (4.0-10.5)
[2016-10-01 03:32] LABS: DIFF IND NO
[2016-10-01 03:55] LABS: ALBUMIN SERUM 3.3 g/dL (3.5-5.0); BILIRUBIN,TOTAL 0.5 mg/dL (0.2-2.0); CALCIUM SERUM 8.8 mg/dL (8.4-10.2); CREATININE SERUM 0.5 mg/dL (0.6-1.4); GLOM FILT RATE Estimated 150.7 mL/min (>60); MAGNESIUM 1.9 mg/dL (1.6-3.0); POTASSIUM 3.6 mmol/L (3.5-5.1); PROTEIN TOTAL SERUM 6.9 g/dL (6.0-8.3)
[2016-10-01 04:58] LABS: ARTERIAL BLD GAS O2 SATURATION 95.8 % (90.0-100.0); ARTERIAL BLOOD GAS CARBOXY HB 0.7 %sat (0.0-9.0); ARTERIAL BLOOD GAS HCO3 27.1 mmol/L; ARTERIAL BLOOD GAS MET HB 0.8 %sat (0.0-2.0); ARTERIAL BLOOD GAS PCO2 40.6 mmHg (35.0-45.0); ARTERIAL BLOOD GAS PO2 82.3 mmHg (80.0-100); ARTERIAL BLOOD GAS pH 7.433 (7.350-7.450)
[2016-10-01 05:03] LABS: ARTERIAL BLOOD GAS ALLEN TEST NORMAL; ARTERIAL BLOOD GAS ART SITE RIGHT RADIAL; ARTERIAL BLOOD GAS DELIVERY VENT; ARTERIAL BLOOD GAS VENT MODE AC; ARTERIAL DRAW? YES
== END 2016-10-01 16:30 | DRG 4 ==
LOC: CED 03:43 → CEDOF 06:50 → CICCU2 08:32
PROVIDERS: Emergency Medicine; Internal Medicine; Internal Medicine Pulmonary Disease; Psychiatry & Neurology Neurology; Surgery
PROC: 05HM33Z Insertion of Infusion Device into Right Internal Jugular Vein, Percutaneous Approach (ICD-10-PCS; principal; 2016-09-16)
PROC: 5A1955Z Respiratory Ventilation, Greater than 96 Consecutive Hours (ICD-10-PCS; 2016-09-16)
PROC: 0DH67UZ Insertion of Feeding Device into Stomach, Via Natural or Artificial Opening (ICD-10-PCS; 2016-09-16)
PROC: B543ZZA Ultrasonography of Right Jugular Veins, Guidance (ICD-10-PCS; 2016-09-16)
PROC: B246YZZ Ultrasonography of Right and Left Heart using Other Contrast (ICD-10-PCS; 2016-09-16)
PROC: 0BH17EZ Insertion of Endotracheal Airway into Trachea, Via Natural or Artificial Opening (ICD-10-PCS; 2016-09-16)
PROC: 0B110F4 Bypass Trachea to Cutaneous with Tracheostomy Device, Open Approach (ICD-10-PCS; 2016-09-22 08:30)
DX: J96.01 Acute respiratory failure with hypoxia (principal); I46.9 Cardiac arrest, cause unspecified; G93.1 Anoxic brain damage, not elsewhere classified; N17.9 Acute kidney failure, unspecified; J45.902 Unspecified asthma with status asthmaticus; E87.2 Acidosis; G40.409 Other generalized epilepsy and epileptic syndromes, not intractable, without status epilepticus; Z99.11 Dependence on respirator [ventilator] status; F17.210 Nicotine dependence, cigarettes, uncomplicated; Z82.49 Family history of ischemic heart disease and other diseases of the circulatory system; D72.829 Elevated white blood cell count, unspecified; E87.6 Hypokalemia; K29.70 Gastritis, unspecified, without bleeding; L40.4 Guttate psoriasis
CPT/HCPCS: 31500; 36415; 36600; 51702; 62273; 70551; 70553; 71010; 71250; 74000; 74176; 76705; 80048; 80053; 80074; 80076; 80202; 80307; 81003; 82150; 82550; 82553; 82803; 82947; 83605; 83690; 83735; 84100; 84132; 84439; 84443; 84484; 85025; 85027; 85610; 85730; 87040; 87070; 87086; 87493; 87633; 87804; 87806; 93005; 93306; 94002; 94003; 94640; 94760; 94761; 95816; 96374; 96375; 99291; A9577; C9113; C9254; J0330; J0456; J0610; J0690; J0696; J1200; J1450; J1650; J1815; J1953; J2060; J2250; J2543; J2560; J2765; J2920; J2930; J3010; J3360; J3370; J3475; Q2009